=== PATIENT | male | born 1955 | race Caucasian/White ===

== ENCOUNTER 2022-08-07 14:23 | Inpatient (IN) | payer MEDICARE ==
[~2022-08-07] VITALS: Ht 172.7 cm; Wt 79.9 kg
[2022-08-07] VITALS (16 sets, daily range): BP systolic 76–110; BP diastolic 38–55
[2022-08-07] MEDS: VASOPRESSIN INJ 20 UNITS in NS 500 ML IV SCH ×2
[2022-08-07] MEDS ORDERED: cefTRIAXone SOD 2 GM in D5W MINI-BAG PLUS 50 ML IV ONE (14:40)
[2022-08-07] MEDS ORDERED: NS 2,100 ML in IV 1 EA IV ONE (14:40)
[2022-08-07] MEDS ORDERED: UNRESOLVED CLARIFICATION ENTRY XX STA (14:49)
[2022-08-07 15:32] LABS: BASO % 0.3 % (0.0-1.0); EOS % 0.1 % (0.0-3.0); HEMATOCRIT 42.5 % (42.0-52.0); HEMOGLOBIN 12.9 g/dl (13.5-17.5); LYMPH # 2.3 10^3/uL (1.5-5.0); LYMPH % 14.6 % (24.0-44.0); MEAN CORPUSCULAR HEMOGLOBIN 33.8 pg (27.0-33.0); MEAN CORPUSCULAR HGB CONC 30.4 g/dl (32.0-36.5); MEAN CORPUSCULAR VOLUME 111.3 fl (80.0-96.0); MONO # 0.7 10^3/uL (0.0-0.8); MONO % 4.5 % (2.0-8.0); NEUTROPHILS # 12.5 10^3/uL (1.5-8.5); NEUTROPHILS % 78.5 % (36.0-66.0); PLATELET COUNT, AUTOMATED 215 10^3/uL (150-450); RED BLOOD COUNT 3.82 10^6/uL (4.30-6.10); WHITE BLOOD COUNT 15.9 10^3/uL (4.0-10.0)
[2022-08-07 15:41] LABS: APPEARANCE, URINE CLEAR (CLEAR); BILIRUBIN, URINE AUTO NEGATIVE (NEGATIVE); BLOOD, URINE BLOOD 1+ (NEGATIVE); COLOR, URINE YELLOW (YELLOW); GLUCOSE, URINE (UA) AUTO NEGATIVE (NEGATIVE); KETONE, URINE AUTO TRACE mg/dL (NEGATIVE); LEUKOCYTE ESTERASE, URINE AUTO NEGATIVE (NEGATIVE); NITRITE, URINE AUTO NEGATIVE (NEGATIVE); PROTEIN, URINE AUTO NEGATIVE (NEGATIVE); SPECIFIC GRAVITY URINE AUTO 1.012 (1.002-1.035); UROBILINOGEN, URINE AUTO 0.2 mg/dL (0.0-2.0)
[2022-08-07 15:43] LABS: BACTERIA, URINE AUTO NEGATIVE (NEGATIVE); RBC, URINE AUTO 0 /HPF (0-3); SQUAMOUS EPITHELIAL CELL UR AU 0 /HPF (0-6); WBC, URINE AUTO 3 /HPF (0-3)
[2022-08-07 15:44] LABS: INR 1.85; PROTHROMBIN TIME 21.7 SECONDS (12.5-14.5)
[2022-08-07 15:45] LABS: PARTIAL THROMBOPLASTIN TIME 46.8 SECONDS (24.8-34.2)
[2022-08-07 15:51] LABS: C REACTIVE PROTEIN QUANTITATIV < 0.40 MG/DL (<1.0); ETHYL ALCOHOL (ETHANOL) 0.081 % (0.000-0.010)
[2022-08-07 15:52] LABS: ABG BASE EXCESS -33.9 (-2.0-2.0); ABG HCO3 3.9 MEQ/L (22.0-26.0); ABG O2 SATURATION 47.9 % (95.0-99.0); ABG PARTIAL PRESSURE CO2 39.5 mmHg (35.0-45.0); ABG STANDARD HCO3 2.2 MEQ/L (22.0-26.0); ABG TOTAL CO2 5.1 MEQ/L (23.0-31.0)
[2022-08-07 15:53] LABS: AMYLASE 229 U/L (30-118); SALICYLATE LEVEL < 3.0 MG/DL (<30)
[2022-08-07] MEDS ORDERED: DEXTROSE 50% 50ML SYRINGE IV STA (15:54)
[2022-08-07 15:56] LABS: ABG PARTIAL PRESSURE O2 35.8 mmHg (75.0-100.0); ABG pH (ARTERIAL) 6.607 UNITS (7.350-7.450)
[2022-08-07 15:57] LABS: RSV AMPLIFICATION NEGATIVE (NEGATIVE)
[2022-08-07 16:02] LABS: AMPHETAMINES LEVEL URINE NEGATIVE (NEGATIVE); BARBITURATES URINE NEGATIVE (NEGATIVE); BENZODIAZEPINES URINE NEGATIVE (NEGATIVE); COCAINE METABOLITE URINE NEGATIVE (NEGATIVE); METHADONE URINE NEGATIVE (NEGATIVE); OPIATES URINE NEGATIVE (NEGATIVE); PHENCYCLIDINE URINE NEGATIVE (NEGATIVE)
[2022-08-07 16:05] LABS: CANNABINOIDS URINE POSITIVE (NEGATIVE)
[2022-08-07 16:09] LABS: ACETAMINOPHEN LEVEL < 2.0 UG/ML (10.0-20.0); ALBUMIN 3.6 G/DL (3.2-5.2); ALKALINE PHOSPHATASE 156 U/L (46-116); ALT/SGPT 98 U/L (7.0-40); AST/SGOT 403 U/L (<34); BILIRUBIN,DIRECT 1.5 MG/DL (<0.4); BILIRUBIN,TOTAL 2.6 MG/DL (0.3-1.2); BLOOD UREA NITROGEN 23 MG/DL (9-23); CALCIUM LEVEL 9.6 MG/DL (8.3-10.6); CARBON DIOXIDE LEVEL < 10.0 MMOL/L (20-31); CHLORIDE LEVEL 91 MMOL/L (98-107); CK-MB VALUE MASS 140.3 NG/ML (<3.6); CPK CREATINE PHOSPHOKINASE 10363 U/L (46-171); GLOMERULAR FILTRATION RATE 21.5 (>49); GLUCOSE, FASTING 54 MG/DL (74-106); MB/CK RELATIVE INDEX 1.35 (< OR =4); POTASSIUM SERUM 5.7 MMOL/L (3.5-5.1); SODIUM LEVEL 140 MMOL/L (136-145); THYROID STIMULATING HORMONE 8.046 uIU/ML (0.55-4.78); TOTAL PROTEIN 7.1 G/DL (5.7-8.2)
[2022-08-07] MEDS ORDERED: D5W/0.9% SODIUM CHLORIDE 1,000 ML IV SCH (16:35)
[2022-08-07 17:14] LABS: OSMOLALITY SERUM 355 MOSM/KG (280-301)
[2022-08-07] MEDS ORDERED: SODIUM BICARBONATE 8.4% INJ 50ML SYRINGE As Ordered ONE (17:16)
[2022-08-07] MEDS ORDERED: MIDAZOLAM INJ 2MG/2ML VIAL As Ordered ONE (17:19)
[2022-08-07] MEDS ORDERED: fentaNYL 100 MCG/2 ML INJECTION IV PRN (17:20)
[2022-08-07] MEDS ORDERED: MIDAZOLAM 100MG/100ML-0.9%NACL 100 MG in IV 1 EA IV SCH (17:20)
[2022-08-07] MEDS ORDERED: CHARCOAL ACTIVATED LIQUID 25GM/120ML BTL NG ONE (17:25)
[2022-08-07] MEDS ORDERED: NOREPINEPHRINE 4MG IN D5 250ML 4 MG in IV 1 EA IV SCH ×2 (17:25)
[2022-08-07] MEDS ORDERED: SODIUM BICARBONATE 8.4% INJ 50ML SYRINGE IV STA (17:43)
[2022-08-07] MEDS ORDERED: MIDAZOLAM INJ 2MG/2ML VIAL IV ONE (18:00)
[2022-08-07] MEDS: PYRIDOXINE 50 MG TAB PO SCH (18:00)
[2022-08-07] MEDS ORDERED: MAG SULF 1GM/100ML (MAG RUN) 1 GM in IV 1 EA IV ONE ×2 (18:00→20:00)
[2022-08-07] MEDS: SODIUM BICARBONATE 150 MEQ in STERILE WATER LITER BAG 1,000 ML IV SCH ×2 (18:07→19:28)
[2022-08-07] MEDS: MIDAZOLAM 100MG/100ML-0.9%NACL 100 MG in IV 1 EA IV SCH ×2 (18:13→23:09)
[2022-08-07] MEDS: NOREPINEPHRINE 4MG IN D5 250ML 4 MG in IV 1 EA IV SCH ×4 (18:16→23:04)
[2022-08-07 18:30] LABS: ABG HCO3 3.3 MEQ/L (22.0-26.0); ABG O2 SATURATION 98.7 % (95.0-99.0); ABG PARTIAL PRESSURE CO2 23.9 mmHg (35.0-45.0); ABG PARTIAL PRESSURE O2 205.9 mmHg (75.0-100.0); ABG STANDARD HCO3 3.8 MEQ/L (22.0-26.0); ABG TOTAL CO2 4.1 MEQ/L (23.0-31.0)
[2022-08-07 18:31] LABS: ABG pH (ARTERIAL) 6.762 UNITS (7.350-7.450)
[2022-08-07] MEDS: SODIUM BICARBONATE 150 MEQ in D5W 1,000 ML IV SCH (19:00)
[2022-08-07] MEDS ORDERED: NS IV ONE (19:00)
[2022-08-07] MEDS ORDERED: FOMEPIZOLE IV ONE (19:00)
[2022-08-07] MEDS ORDERED: HEPARIN 1,000UNITS/ML 10ML VIAL (FOR RADIOLOGY & DIALYSIS ONLY) IV STA (19:13)
[2022-08-07] MEDS ORDERED: ROCURONIUM BROMIDE 50MG/5ML VIAL ONE (19:33)
[2022-08-07] MEDS ORDERED: ETOMIDATE INJ 20MG/10ML VIAL ONE (19:33)
[2022-08-07] MEDS ORDERED: COMBIVENT RESPIMAT 100-20MCG INHALER 4GM INH SCH (20:00)
[2022-08-07] MEDS ORDERED: ETOMIDATE INJ 20MG/10ML VIAL IV STA (20:02)
[2022-08-07] MEDS ORDERED: ROCURONIUM BROMIDE 50MG/5ML VIAL IV SCH (20:05)
[2022-08-07 20:08] LABS: OSMOLALITY SERUM 353 MOSM/KG (280-301)
[2022-08-07 20:12] LABS: ACETONE/KETONE > 4.50 MMOL/L (0.02-0.27); ALBUMIN 2.8 G/DL (3.2-5.2); BLOOD UREA NITROGEN 23 MG/DL (9-23); CALCIUM LEVEL 7.8 MG/DL (8.3-10.6); CARBON DIOXIDE LEVEL < 10.0 MMOL/L (20-31); CHLORIDE LEVEL 94 MMOL/L (98-107); CREATININE FOR GFR 2.89 MG/DL (0.70-1.30); GLOMERULAR FILTRATION RATE 23.3 (>49); GLUCOSE, FASTING 227 MG/DL (74-106); MAGNESIUM LEVEL 2.4 MG/DL (1.8-2.4); POTASSIUM SERUM 7.1 MMOL/L (3.5-5.1); SODIUM LEVEL 137 MMOL/L (136-145)
[2022-08-07] MEDS ORDERED: SODIUM CHLORIDE 0.9% INJ 10 ML SYR IV PRN (20:50)
[2022-08-07] MEDS ORDERED: HEPARIN 1,000UNITS/ML 10ML VIAL (FOR RADIOLOGY & DIALYSIS ONLY) IV PRN (20:50)
[2022-08-07] MEDS: PANTOPRAZOLE 40MG VIAL IV SCH (22:00)
[2022-08-07] MEDS: THIAMINE 200MG 2ML VIAL IV SCH (22:45)
[2022-08-07] MEDS: CHLORHEXIDINE GLUCONATE 0.12 % 15ML UDC (PERIDEX ORAL RINSE) MT SCH (22:45)
[2022-08-07] MEDS: FOLIC ACID 50 MG in NS 50 ML IV SCH (23:08)
[2022-08-08] VITALS (101 sets, daily range): BP systolic 67–163; BP diastolic 33–71
[2022-08-08] MEDS: IPRATROPIUM 0.5MG/ALBUTEROL 2.5MG INH SOL UD 3ML (DUONEB) NEB SCH ×5 (00:26→19:55)
[2022-08-08] MEDS: SODIUM BICARBONATE 150 MEQ in D5W 1,000 ML IV SCH ×2 (00:30→06:46)
[2022-08-08] MEDS: NOREPINEPHRINE 4MG IN D5 250ML 4 MG in IV 1 EA IV SCH ×16 (01:11→20:43)
[2022-08-08] MEDS: PYRIDOXINE 50 MG TAB PO SCH ×5 (01:26→23:41)
[2022-08-08] MEDS ORDERED: GLUCOSE 4GM CHEW TABLET PO PRN (02:25)
[2022-08-08] MEDS ORDERED: GLUCAGON INJ 1MG VIAL SC PRN (02:25)
[2022-08-08] MEDS: FOLIC ACID 50 MG in NS 50 ML IV SCH ×7 (03:05→20:41)
[2022-08-08] MEDS: THIAMINE 200MG 2ML VIAL IV SCH (03:05)
[2022-08-08] MEDS ORDERED: FOMEPIZOLE IV ONE (04:00)
[2022-08-08] MEDS ORDERED: NS IV ONE (04:00)
[2022-08-08 04:18] LABS: HEMATOCRIT 27.7 % (42.0-52.0); HEMOGLOBIN 9.6 g/dl (13.5-17.5); MEAN CORPUSCULAR HEMOGLOBIN 34.5 pg (27.0-33.0); MEAN CORPUSCULAR HGB CONC 34.7 g/dl (32.0-36.5); MEAN CORPUSCULAR VOLUME 99.6 fl (80.0-96.0); RED BLOOD COUNT 2.78 10^6/uL (4.30-6.10)
[2022-08-08 04:18] LABS: ABG BASE EXCESS -9.5 (-2.0-2.0); ABG HCO3 15.3 MEQ/L (22.0-26.0); ABG O2 SATURATION 94.6 % (95.0-99.0); ABG PARTIAL PRESSURE CO2 29.9 mmHg (35.0-45.0); ABG PARTIAL PRESSURE O2 72.4 mmHg (75.0-100.0); ABG STANDARD HCO3 16.8 MEQ/L (22.0-26.0); ABG TOTAL CO2 16.2 MEQ/L (23.0-31.0); ABG pH (ARTERIAL) 7.327 UNITS (7.350-7.450)
[2022-08-08 04:36] LABS: PLATELET COUNT, AUTOMATED 83 10^3/uL (150-450)
[2022-08-08 04:38] LABS: WHITE BLOOD COUNT 6.7 10^3/uL (4.0-10.0)
[2022-08-08 04:53] LABS: CALCIUM LEVEL 6.1 MG/DL (8.3-10.6); CREATININE FOR GFR 1.87 MG/DL (0.70-1.30); GLOMERULAR FILTRATION RATE 38.5 (>49); MAGNESIUM LEVEL 1.8 MG/DL (1.8-2.4); PHOSPHORUS LEVEL 4.3 MG/DL (2.4-5.1); POTASSIUM SERUM 5.1 MMOL/L (3.5-5.1)
[2022-08-08 05:08] LABS: ALBUMIN 2.4 G/DL (3.2-5.2); CALCIUM LEVEL 6.2 MG/DL (8.3-10.6); CREATININE FOR GFR 1.83 MG/DL (0.70-1.30); GLOMERULAR FILTRATION RATE 39.5 (>49); POTASSIUM SERUM 5.1 MMOL/L (3.5-5.1); TOTAL PROTEIN 4.6 G/DL (5.7-8.2)
[2022-08-08] MEDS: CALCIUM GLUCONATE 1,000 MG in NS 100 ML IV SCH ×3 (05:50→23:40)
[2022-08-08] MEDS: INSULIN LISPRO (NovoLOG) PER UNIT SC SCH ×3 (06:25→17:16)
[2022-08-08] MEDS: VASOPRESSIN INJ 20 UNITS in NS 500 ML IV SCH (06:57)
[2022-08-08] MEDS ORDERED: MAG SULF 1GM/100ML (MAG RUN) 1 GM in IV 1 EA IV ONE ×3 (07:00→19:00)
[2022-08-08] MEDS ORDERED: VASOPRESSIN INJ 20 UNITS in NS 499 ML IV SCH (07:12)
[2022-08-08] MEDS ORDERED: CALCIUM CHLORIDE 10% 1 GM/10 ML SYR IV STA (07:41)
[2022-08-08] MEDS ORDERED: VANCOMYCIN HCL 1,000 MG, VIAL MATE ADAPTER 1 EACH in NS 250 ML IV SCH (08:20)
[2022-08-08] MEDS ORDERED: ENOXAPARIN 40MG/0.4ML SYRINGE (J1650 PER 10MG) SC SCH (09:00)
[2022-08-08] MEDS ORDERED: THIAMINE 200MG 2ML VIAL IV SCH (09:00)
[2022-08-08] MEDS ORDERED: D5W IV ONE (09:00)
[2022-08-08] MEDS ORDERED: ACETYLCYSTEINE IV ONE (09:00)
[2022-08-08] MEDS: CHLORHEXIDINE GLUCONATE 0.12 % 15ML UDC (PERIDEX ORAL RINSE) MT SCH ×2 (09:07→20:41)
[2022-08-08] MEDS: SODIUM BICARBONATE 150 MEQ in STERILE WATER LITER BAG 1,000 ML IV SCH ×2 (09:08→17:29)
[2022-08-08] MEDS: cefTRIAXone SOD 2 GM in D5W MINI-BAG PLUS 50 ML IV SCH (09:18)
[2022-08-08] MEDS: THIAMINE INJection 500 MG in NS 100 ML IV SCH ×2 (09:19→15:55)
[2022-08-08] MEDS ORDERED: VANCOMYCIN HCL 750 MG, VIAL MATE ADAPTER 1 EACH in D5W 250 ML IV ONE (10:00)
[2022-08-08] MEDS ORDERED: EPINEPHrine INJ 1 MG/ML 1ML AMP As Ordered ONE (10:33)
[2022-08-08 10:37] LABS: HEMATOCRIT 25.1 % (42.0-52.0); HEMOGLOBIN 8.6 g/dl (13.5-17.5); MEAN CORPUSCULAR HEMOGLOBIN 34.3 pg (27.0-33.0); MEAN CORPUSCULAR HGB CONC 34.3 g/dl (32.0-36.5); RED BLOOD COUNT 2.51 10^6/uL (4.30-6.10); WHITE BLOOD COUNT 2.3 10^3/uL (4.0-10.0)
[2022-08-08 10:38] LABS: PLATELET COUNT, AUTOMATED 51 10^3/uL (150-450)
[2022-08-08] MEDS ORDERED: EPINEPHrine HCL INJ 1 MG in D5W 249 ML IV SCH (10:50)
[2022-08-08 10:59] LABS: CREATININE FOR GFR 1.33 MG/DL (0.70-1.30); GLOMERULAR FILTRATION RATE 57.1 (>49); MAGNESIUM LEVEL 1.8 MG/DL (1.8-2.4); PHOSPHORUS LEVEL 1.8 MG/DL (2.4-5.1); POTASSIUM SERUM 3.7 MMOL/L (3.5-5.1)
[2022-08-08] MEDS ORDERED: ACETYLCYSTEINE 3,400 MG in D5W 500 ML IV ONE (11:00)
[2022-08-08] MEDS ORDERED: EPINEPHrine HCL INJ 4 MG in D5W 996 ML IV SCH ×2 (11:00→13:00)
[2022-08-08] MEDS ORDERED: EPINEPHrine HCL INJ 1 MG in D5W 240 ML IV SCH (11:00)
[2022-08-08] MEDS ORDERED: VANCOMYCIN HCL 500 MG in D5W MINI-BAG PLUS 100 ML IV ONE (11:00)
[2022-08-08] MEDS: HYDROCORTISONE 100MG/2ML VIAL IV SCH ×3 (11:02→22:23)
[2022-08-08] MEDS ORDERED: KCL 20MEQ IN 100ML SWI (KRUN) 20 MEQ in IV 1 EA IV ONE ×2 (11:55)
[2022-08-08] MEDS: CALCIUM GLUCONATE 1,000 MG, VIAL MATE ADAPTER 1 EACH in NS 100 ML IV SCH ×2 (12:33→13:52)
[2022-08-08] MEDS ORDERED: SODIUM PHOSPHATE INJ 15 MMOL in D5W 250 ML IV ONE (15:00)
[2022-08-08] MEDS ORDERED: ACETYLCYSTEINE 6,800 MG in D5W 1,000 ML IV ONE (15:00)
[2022-08-08 16:02] LABS: HEMATOCRIT 27.5 % (42.0-52.0); HEMOGLOBIN 9.5 g/dl (13.5-17.5); MEAN CORPUSCULAR HEMOGLOBIN 34.3 pg (27.0-33.0); MEAN CORPUSCULAR HGB CONC 34.5 g/dl (32.0-36.5); MEAN CORPUSCULAR VOLUME 99.3 fl (80.0-96.0); RED BLOOD COUNT 2.77 10^6/uL (4.30-6.10); WHITE BLOOD COUNT 4.7 10^3/uL (4.0-10.0)
[2022-08-08 16:07] LABS: PLATELET COUNT, AUTOMATED 52 10^3/uL (150-450)
[2022-08-08 17:31] LABS: ALT/SGPT 88 U/L (7.0-40); AST/SGOT 280 U/L (<34); BLOOD UREA NITROGEN 10 MG/DL (9-23); CALCIUM LEVEL 6.8 MG/DL (8.3-10.6); CARBON DIOXIDE LEVEL 18 MMOL/L (20-31); CHLORIDE LEVEL 96 MMOL/L (98-107); CREATININE FOR GFR 1.09 MG/DL (0.70-1.30); GLOMERULAR FILTRATION RATE > 60.0 (>49); GLUCOSE, FASTING 297 MG/DL (74-106); MAGNESIUM LEVEL 1.9 MG/DL (1.8-2.4); PHOSPHORUS LEVEL 1.8 MG/DL (2.4-5.1); POTASSIUM SERUM 4.3 MMOL/L (3.5-5.1); SODIUM LEVEL 133 MMOL/L (136-145)
[2022-08-08] MEDS: PANTOPRAZOLE 40MG VIAL IV SCH (18:31)
[2022-08-08] MEDS: CALCIUM GLUCONATE 1,000 MG in D5W MINI-BAG PLUS 100 ML IV SCH ×2 (18:41→21:11)
[2022-08-08 19:01] LABS: CPK CREATINE PHOSPHOKINASE 6356 U/L (46-171)
[2022-08-08] MEDS ORDERED: INSULIN LISPRO (NovoLOG) PER UNIT SC SCH (21:00)
[2022-08-08] MEDS ORDERED: SODIUM PHOSPHATE INJ 30 MMOL in D5W 500 ML IV ONE (22:00)
[2022-08-08 22:21] LABS: HEMATOCRIT 29.1 % (42.0-52.0); HEMOGLOBIN 10.2 g/dl (13.5-17.5); MEAN CORPUSCULAR HGB CONC 35.1 g/dl (32.0-36.5); WHITE BLOOD COUNT 8.8 10^3/uL (4.0-10.0)
[2022-08-08 22:22] LABS: PLATELET COUNT, AUTOMATED 50 10^3/uL (150-450)
[2022-08-08] MEDS: VANCOMYCIN HCL 750 MG, VIAL MATE ADAPTER 1 EACH in D5W 250 ML IV SCH (22:23)
[2022-08-08 22:52] LABS: BLOOD UREA NITROGEN 8 MG/DL (9-23); CALCIUM LEVEL 6.7 MG/DL (8.3-10.6); CARBON DIOXIDE LEVEL 20 MMOL/L (20-31); CHLORIDE LEVEL 96 MMOL/L (98-107); CREATININE FOR GFR 0.97 MG/DL (0.70-1.30); GLOMERULAR FILTRATION RATE > 60.0 (>49); GLUCOSE, FASTING 251 MG/DL (74-106); PHOSPHORUS LEVEL 2.4 MG/DL (2.4-5.1); POTASSIUM SERUM 4.1 MMOL/L (3.5-5.1); SODIUM LEVEL 130 MMOL/L (136-145)
[2022-08-09] VITALS (103 sets, daily range): BP systolic 74–157; BP diastolic 44–96; O2SAT 97
[2022-08-09] MEDS: NOREPINEPHRINE 4MG IN D5 250ML 4 MG in IV 1 EA IV SCH ×10 (00:36→21:03)
[2022-08-09] MEDS: THIAMINE INJection 500 MG in NS 100 ML IV SCH ×2 (00:37→07:31)
[2022-08-09] MEDS: INSULIN LISPRO (NovoLOG) PER UNIT SC SCH ×3 (00:38→20:00)
[2022-08-09] MEDS: CALCIUM GLUCONATE 1,000 MG in NS 100 ML IV SCH ×5 (00:46→13:24)
[2022-08-09] MEDS: FOLIC ACID 50 MG in NS 50 ML IV SCH ×3 (01:03→07:42)
[2022-08-09] MEDS ORDERED: SODIUM PHOSPHATE INJ 15 MMOL in D5W 500 ML IV ONE (02:00)
[2022-08-09 04:28] LABS: HEMATOCRIT 29.2 % (42.0-52.0); HEMOGLOBIN 10.3 g/dl (13.5-17.5); MEAN CORPUSCULAR HEMOGLOBIN 34.2 pg (27.0-33.0); MEAN CORPUSCULAR HGB CONC 35.3 g/dl (32.0-36.5); PLATELET COUNT, AUTOMATED 44 10^3/uL (150-450); RED BLOOD COUNT 3.01 10^6/uL (4.30-6.10); WHITE BLOOD COUNT 11.9 10^3/uL (4.0-10.0)
[2022-08-09 05:01] LABS: BLOOD UREA NITROGEN 7 MG/DL (9-23); CALCIUM LEVEL 6.8 MG/DL (8.3-10.6); CARBON DIOXIDE LEVEL 21 MMOL/L (20-31); CHLORIDE LEVEL 97 MMOL/L (98-107); CREATININE FOR GFR 0.96 MG/DL (0.70-1.30); GLOMERULAR FILTRATION RATE > 60.0 (>49); GLUCOSE, FASTING 222 MG/DL (74-106); MAGNESIUM LEVEL 1.9 MG/DL (1.8-2.4); PHOSPHORUS LEVEL 3.2 MG/DL (2.4-5.1); POTASSIUM SERUM 4.1 MMOL/L (3.5-5.1); SODIUM LEVEL 131 MMOL/L (136-145)
[2022-08-09] MEDS: PYRIDOXINE 50 MG TAB PO SCH (05:08)
[2022-08-09] MEDS: HYDROCORTISONE 100MG/2ML VIAL IV SCH ×4 (05:08→22:13)
[2022-08-09 05:55] LABS: ABG BASE EXCESS -3.1 (-2.0-2.0); ABG HCO3 19.2 MEQ/L (22.0-26.0); ABG O2 SATURATION 96.2 % (95.0-99.0); ABG PARTIAL PRESSURE CO2 26.2 mmHg (35.0-45.0); ABG PARTIAL PRESSURE O2 76.8 mmHg (75.0-100.0); ABG STANDARD HCO3 21.9 MEQ/L (22.0-26.0); ABG pH (ARTERIAL) 7.483 UNITS (7.350-7.450)
[2022-08-09] MEDS ORDERED: MAG SULF 1GM/100ML (MAG RUN) 1 GM in IV 1 EA IV ONE (07:00)
[2022-08-09] MEDS: IPRATROPIUM 0.5MG/ALBUTEROL 2.5MG INH SOL UD 3ML (DUONEB) NEB SCH ×4 (07:23→20:02)
[2022-08-09] MEDS: MIDAZOLAM 100MG/100ML-0.9%NACL 100 MG in IV 1 EA IV SCH (08:22)
[2022-08-09] MEDS: cefTRIAXone SOD 2 GM in D5W MINI-BAG PLUS 50 ML IV SCH (09:04)
[2022-08-09] MEDS ORDERED: INSULIN REGULAR IN 0.9 % NACL 100 UNIT in IV 1 EA IV SCH ×2 (09:35)
[2022-08-09] MEDS: VANCOMYCIN HCL 750 MG, VIAL MATE ADAPTER 1 EACH in D5W 250 ML IV SCH ×2 (10:11→22:13)
[2022-08-09] MEDS: CHLORHEXIDINE GLUCONATE 0.12 % 15ML UDC (PERIDEX ORAL RINSE) MT SCH ×2 (10:12→21:04)
[2022-08-09 10:51] LABS: HEMATOCRIT 30.4 % (42.0-52.0); HEMOGLOBIN 10.4 g/dl (13.5-17.5); MEAN CORPUSCULAR HGB CONC 34.2 g/dl (32.0-36.5); MEAN CORPUSCULAR VOLUME 99.3 fl (80.0-96.0); RED BLOOD COUNT 3.06 10^6/uL (4.30-6.10); WHITE BLOOD COUNT 13.9 10^3/uL (4.0-10.0)
[2022-08-09 10:59] LABS: ALBUMIN 1.9 G/DL (3.2-5.2); ALKALINE PHOSPHATASE 116 U/L (46-116); ALT/SGPT 114 U/L (7.0-40); AST/SGOT 505 U/L (<34); BILIRUBIN,DIRECT 2.3 MG/DL (<0.4); BILIRUBIN,TOTAL 3.5 MG/DL (0.3-1.2); TOTAL PROTEIN 4.2 G/DL (5.7-8.2)
[2022-08-09 11:04] LABS: PLATELET COUNT, AUTOMATED 39 10^3/uL (150-450)
[2022-08-09 11:12] LABS: BLOOD UREA NITROGEN 7 MG/DL (9-23); CARBON DIOXIDE LEVEL 22 MMOL/L (20-31); CHLORIDE LEVEL 99 MMOL/L (98-107); CREATININE FOR GFR 0.95 MG/DL (0.70-1.30); GLOMERULAR FILTRATION RATE > 60.0 (>49); GLUCOSE, FASTING 165 MG/DL (74-106); MAGNESIUM LEVEL 2.1 MG/DL (1.8-2.4); PHOSPHORUS LEVEL 2.7 MG/DL (2.4-5.1); POTASSIUM SERUM 4.4 MMOL/L (3.5-5.1); SODIUM LEVEL 134 MMOL/L (136-145)
[2022-08-09] MEDS: INSULIN IV RATE CHANGE DOCUMENTATION ML/HR XX SCH ×2 (11:31→13:30)
[2022-08-09] MEDS: VASOPRESSIN INJ 20 UNITS in NS 499 ML IV SCH ×2 (12:58→20:50)
[2022-08-09 16:06] LABS: HEMOGLOBIN 10.7 g/dl (13.5-17.5); MEAN CORPUSCULAR HEMOGLOBIN 33.9 pg (27.0-33.0); MEAN CORPUSCULAR HGB CONC 34.5 g/dl (32.0-36.5); MEAN CORPUSCULAR VOLUME 98.1 fl (80.0-96.0); RED BLOOD COUNT 3.16 10^6/uL (4.30-6.10); WHITE BLOOD COUNT 15.4 10^3/uL (4.0-10.0)
[2022-08-09 16:08] LABS: PLATELET COUNT, AUTOMATED 34 10^3/uL (150-450)
[2022-08-09 16:32] LABS: BLOOD UREA NITROGEN < 5 MG/DL (9-23); CALCIUM LEVEL 7.2 MG/DL (8.3-10.6); CARBON DIOXIDE LEVEL 24 MMOL/L (20-31); CHLORIDE LEVEL 100 MMOL/L (98-107); CREATININE FOR GFR 0.84 MG/DL (0.70-1.30); GLOMERULAR FILTRATION RATE > 60.0 (>49); GLUCOSE, FASTING 92 MG/DL (74-106); PHOSPHORUS LEVEL 2.3 MG/DL (2.4-5.1); POTASSIUM SERUM 4.3 MMOL/L (3.5-5.1); SODIUM LEVEL 135 MMOL/L (136-145)
[2022-08-09] MEDS ORDERED: INSULIN LISPRO (NovoLOG) PER UNIT SC SCH (17:45)
[2022-08-09] MEDS: CALCIUM GLUCONATE 1,000 MG, VIAL MATE ADAPTER 1 EACH in NS 100 ML IV SCH ×2 (18:21→19:46)
[2022-08-09] MEDS: PANTOPRAZOLE 40MG VIAL IV SCH (18:21)
[2022-08-09] MEDS: DEXTROSE 50% 50ML SYRINGE IV PRN (18:23)
[2022-08-09] MEDS ORDERED: SODIUM PHOSPHATE INJ 15 MMOL in D5W 250 ML IV ONE (20:00)
[2022-08-09 22:19] LABS: HEMATOCRIT 30.1 % (42.0-52.0); HEMOGLOBIN 10.3 g/dl (13.5-17.5); MEAN CORPUSCULAR HEMOGLOBIN 33.4 pg (27.0-33.0); MEAN CORPUSCULAR HGB CONC 34.2 g/dl (32.0-36.5); MEAN CORPUSCULAR VOLUME 97.7 fl (80.0-96.0); RED BLOOD COUNT 3.08 10^6/uL (4.30-6.10); WHITE BLOOD COUNT 16.2 10^3/uL (4.0-10.0)
[2022-08-09 22:21] LABS: PLATELET COUNT, AUTOMATED 27 10^3/uL (150-450)
[2022-08-09 22:43] LABS: BLOOD UREA NITROGEN 6 MG/DL (9-23); CALCIUM LEVEL 7.2 MG/DL (8.3-10.6); CARBON DIOXIDE LEVEL 25 MMOL/L (20-31); CHLORIDE LEVEL 101 MMOL/L (98-107); CREATININE FOR GFR 0.69 MG/DL (0.70-1.30); GLOMERULAR FILTRATION RATE > 60.0 (>49); GLUCOSE, FASTING 129 MG/DL (74-106); PHOSPHORUS LEVEL 2.5 MG/DL (2.4-5.1); POTASSIUM SERUM 4.4 MMOL/L (3.5-5.1); SODIUM LEVEL 136 MMOL/L (136-145)
[2022-08-10] VITALS (92 sets, daily range): BP systolic 89–162; BP diastolic 50–77
[2022-08-10] MEDS: INSULIN LISPRO (NovoLOG) PER UNIT SC SCH ×6 (00:20→20:23)
[2022-08-10] MEDS: CALCIUM GLUCONATE 1,000 MG in NS 100 ML IV SCH ×2 (01:50→03:06)
[2022-08-10] MEDS: NOREPINEPHRINE 4MG IN D5 250ML 4 MG in IV 1 EA IV SCH ×8 (02:54→23:18)
[2022-08-10] MEDS: HYDROCORTISONE 100MG/2ML VIAL IV SCH ×4 (04:22→22:03)
[2022-08-10 04:23] LABS: HEMATOCRIT 30.3 % (42.0-52.0); HEMOGLOBIN 10.4 g/dl (13.5-17.5); MEAN CORPUSCULAR HEMOGLOBIN 33.7 pg (27.0-33.0); MEAN CORPUSCULAR HGB CONC 34.3 g/dl (32.0-36.5); MEAN CORPUSCULAR VOLUME 98.1 fl (80.0-96.0); RED BLOOD COUNT 3.09 10^6/uL (4.30-6.10); WHITE BLOOD COUNT 13.9 10^3/uL (4.0-10.0)
[2022-08-10 04:24] LABS: PLATELET COUNT, AUTOMATED 22 10^3/uL (150-450)
[2022-08-10 04:50] LABS: VANCOMYCIN RANDOM 14.2 UG/ML
[2022-08-10 04:51] LABS: ALKALINE PHOSPHATASE 112 U/L (46-116); ALT/SGPT 118 U/L (7.0-40); AST/SGOT 387 U/L (<34); BILIRUBIN,DIRECT 2.6 MG/DL (<0.4); BILIRUBIN,TOTAL 3.1 MG/DL (0.3-1.2); BLOOD UREA NITROGEN 6 MG/DL (9-23); BLOOD UREA NITROGEN 7 MG/DL (9-23); CALCIUM LEVEL 7.3 MG/DL (8.3-10.6); CALCIUM LEVEL 7.4 MG/DL (8.3-10.6); CARBON DIOXIDE LEVEL 26 MMOL/L (20-31); CHLORIDE LEVEL 102 MMOL/L (98-107); CREATININE FOR GFR 0.63 MG/DL (0.70-1.30); CREATININE FOR GFR 0.65 MG/DL (0.70-1.30); GLOMERULAR FILTRATION RATE > 60.0 (>49); GLUCOSE, FASTING 179 MG/DL (74-106); GLUCOSE, FASTING 180 MG/DL (74-106); PHOSPHORUS LEVEL 2.2 MG/DL (2.4-5.1); POTASSIUM SERUM 4.2 MMOL/L (3.5-5.1); POTASSIUM SERUM 4.3 MMOL/L (3.5-5.1); SODIUM LEVEL 135 MMOL/L (136-145); SODIUM LEVEL 136 MMOL/L (136-145); TOTAL PROTEIN 4.2 G/DL (5.7-8.2)
[2022-08-10] MEDS: VASOPRESSIN INJ 20 UNITS in NS 499 ML IV SCH ×2 (05:10→13:30)
[2022-08-10] MEDS: CALCIUM GLUCONATE 1,000 MG, VIAL MATE ADAPTER 1 EACH in NS 100 ML IV SCH ×4 (05:17→19:41)
[2022-08-10 06:26] LABS: ABG BASE EXCESS 1.2 (-2.0-2.0); ABG O2 SATURATION 97.4 % (95.0-99.0); ABG PARTIAL PRESSURE CO2 31.7 mmHg (35.0-45.0); ABG PARTIAL PRESSURE O2 91.2 mmHg (75.0-100.0); ABG STANDARD HCO3 25.6 MEQ/L (22.0-26.0); ABG pH (ARTERIAL) 7.497 UNITS (7.350-7.450)
[2022-08-10] MEDS ORDERED: SODIUM PHOSPHATE INJ 30 MMOL in D5W 250 ML IV ONE (07:00)
[2022-08-10] MEDS: IPRATROPIUM 0.5MG/ALBUTEROL 2.5MG INH SOL UD 3ML (DUONEB) NEB SCH ×4 (07:20→19:08)
[2022-08-10] MEDS: PYRIDOXINE 50 MG TAB PO SCH (08:22)
[2022-08-10] MEDS: FOLIC ACID 1MG TAB PO SCH (08:22)
[2022-08-10] MEDS: CHLORHEXIDINE GLUCONATE 0.12 % 15ML UDC (PERIDEX ORAL RINSE) MT SCH ×2 (08:22→22:03)
[2022-08-10] MEDS: THIAMINE 200MG 2ML VIAL IV SCH (08:22)
[2022-08-10] MEDS: VANCOMYCIN HCL 750 MG, VIAL MATE ADAPTER 1 EACH in D5W 250 ML IV SCH ×2 (08:25→20:23)
[2022-08-10] MEDS ORDERED: LOSA50TA28 PO (09:22)
[2022-08-10] MEDS ORDERED: VENL37.598 PO (09:22)
[2022-08-10] MEDS ORDERED: ALPR0.25 PO (09:22)
[2022-08-10] MEDS ORDERED: HOME MED LIST COMPLETE! XX SCH (09:25)
[2022-08-10] MEDS: cefTRIAXone SOD 2 GM in D5W MINI-BAG PLUS 50 ML IV SCH (09:59)
[2022-08-10 10:58] LABS: BLOOD UREA NITROGEN 7 MG/DL (9-23); CALCIUM LEVEL 7.8 MG/DL (8.3-10.6); CARBON DIOXIDE LEVEL 26 MMOL/L (20-31); CHLORIDE LEVEL 103 MMOL/L (98-107); CREATININE FOR GFR 0.62 MG/DL (0.70-1.30); GLOMERULAR FILTRATION RATE > 60.0 (>49); GLUCOSE, FASTING 178 MG/DL (74-106); PHOSPHORUS LEVEL 2.4 MG/DL (2.4-5.1); POTASSIUM SERUM 3.7 MMOL/L (3.5-5.1); SODIUM LEVEL 136 MMOL/L (136-145)
[2022-08-10 11:03] LABS: HEMATOCRIT 30.3 % (42.0-52.0); HEMOGLOBIN 10.6 g/dl (13.5-17.5); MEAN CORPUSCULAR HEMOGLOBIN 34.6 pg (27.0-33.0); RED BLOOD COUNT 3.06 10^6/uL (4.30-6.10); WHITE BLOOD COUNT 14.2 10^3/uL (4.0-10.0)
[2022-08-10 11:09] LABS: PLATELET COUNT, AUTOMATED 18 10^3/uL (150-450)
[2022-08-10] MEDS: MIDAZOLAM 100MG/100ML-0.9%NACL 100 MG in IV 1 EA IV SCH (12:20)
[2022-08-10 17:00] LABS: HEMATOCRIT 29.3 % (42.0-52.0); MEAN CORPUSCULAR HEMOGLOBIN 33.7 pg (27.0-33.0); MEAN CORPUSCULAR HGB CONC 34.1 g/dl (32.0-36.5); MEAN CORPUSCULAR VOLUME 98.7 fl (80.0-96.0); RED BLOOD COUNT 2.97 10^6/uL (4.30-6.10); WHITE BLOOD COUNT 12.3 10^3/uL (4.0-10.0)
[2022-08-10 17:01] LABS: PLATELET COUNT, AUTOMATED 21 10^3/uL (150-450)
[2022-08-10 17:16] LABS: BLOOD UREA NITROGEN 8 MG/DL (9-23); CALCIUM LEVEL 7.4 MG/DL (8.3-10.6); CARBON DIOXIDE LEVEL 27 MMOL/L (20-31); CHLORIDE LEVEL 103 MMOL/L (98-107); GLOMERULAR FILTRATION RATE > 60.0 (>49); GLUCOSE, FASTING 194 MG/DL (74-106); MAGNESIUM LEVEL 2.1 MG/DL (1.8-2.4); PHOSPHORUS LEVEL 2.3 MG/DL (2.4-5.1); POTASSIUM SERUM 3.4 MMOL/L (3.5-5.1); SODIUM LEVEL 139 MMOL/L (136-145)
[2022-08-10] MEDS ORDERED: NS 1,000 ML IV SCH (18:00)
[2022-08-10] MEDS: PANTOPRAZOLE 40MG VIAL IV SCH (18:17)
[2022-08-10] MEDS: KCL 20MEQ IN 100ML SWI (KRUN) 20 MEQ in IV 1 EA IV SCH ×4 (18:23→19:41)
[2022-08-10] MEDS ORDERED: MIDAZOLAM INJ 2MG/2ML VIAL IV PRN (18:25)
[2022-08-10] MEDS ORDERED: SODIUM PHOSPHATE INJ 15 MMOL in D5W 250 ML IV ONE (20:00)
[2022-08-10 22:57] LABS: HEMATOCRIT 27.4 % (42.0-52.0); HEMOGLOBIN 9.5 g/dl (13.5-17.5); MEAN CORPUSCULAR HEMOGLOBIN 34.3 pg (27.0-33.0); MEAN CORPUSCULAR HGB CONC 34.7 g/dl (32.0-36.5); MEAN CORPUSCULAR VOLUME 98.9 fl (80.0-96.0); RED BLOOD COUNT 2.77 10^6/uL (4.30-6.10); WHITE BLOOD COUNT 10.7 10^3/uL (4.0-10.0)
[2022-08-10 22:58] LABS: PLATELET COUNT, AUTOMATED 14 10^3/uL (150-450)
[2022-08-10 23:33] LABS: BLOOD UREA NITROGEN 9 MG/DL (9-23); CALCIUM LEVEL 7.2 MG/DL (8.3-10.6); CARBON DIOXIDE LEVEL 26 MMOL/L (20-31); CHLORIDE LEVEL 106 MMOL/L (98-107); CREATININE FOR GFR 0.59 MG/DL (0.70-1.30); GLOMERULAR FILTRATION RATE > 60.0 (>49); GLUCOSE, FASTING 197 MG/DL (74-106); MAGNESIUM LEVEL 1.9 MG/DL (1.8-2.4); PHOSPHORUS LEVEL 1.7 MG/DL (2.4-5.1); POTASSIUM SERUM 3.9 MMOL/L (3.5-5.1); SODIUM LEVEL 137 MMOL/L (136-145)
[2022-08-11] VITALS (71 sets, daily range): BP systolic 94–170; BP diastolic 53–82
[2022-08-11] MEDS ORDERED: MAG SULF 1GM/100ML (MAG RUN) 1 GM in IV 1 EA IV ONE ×2
[2022-08-11] MEDS: INSULIN LISPRO (NovoLOG) PER UNIT SC SCH ×5 (00:28→15:59)
[2022-08-11] MEDS ORDERED: KCL 20MEQ IN 100ML SWI (KRUN) 20 MEQ in IV 1 EA IV ONE ×4 (00:30→06:30)
[2022-08-11] MEDS ORDERED: MIDAZOLAM INJ 2MG/2ML VIAL IV ONE (01:35)
[2022-08-11] MEDS ORDERED: FENTANYL DRIP LOCK BOX KEY 1 EACH XX PRN (01:35)
[2022-08-11] MEDS ORDERED: fentaNYL CITRATE/NaCl 1,000 MCG in IV 1 EA IV SCH (01:35)
[2022-08-11] MEDS ORDERED: MIDAZOLAM 100MG/100ML-0.9%NACL 100 MG in IV 1 EA IV SCH (01:35)
[2022-08-11] MEDS: CALCIUM GLUCONATE 1,000 MG, VIAL MATE ADAPTER 1 EACH in NS 100 ML IV SCH ×2 (02:07→03:55)
[2022-08-11] MEDS ORDERED: SODIUM PHOSPHATE INJ 30 MMOL in D5W 250 ML IV ONE ×2 (04:30→12:00)
[2022-08-11] MEDS: HYDROCORTISONE 100MG/2ML VIAL IV SCH ×3 (04:47→16:00)
[2022-08-11 05:41] LABS: ABG BASE EXCESS 1.3 (-2.0-2.0); ABG O2 SATURATION 96.4 % (95.0-99.0); ABG PARTIAL PRESSURE CO2 31.4 mmHg (35.0-45.0); ABG PARTIAL PRESSURE O2 85.1 mmHg (75.0-100.0); ABG STANDARD HCO3 25.6 MEQ/L (22.0-26.0); ABG pH (ARTERIAL) 7.502 UNITS (7.350-7.450)
[2022-08-11 05:49] LABS: HEMATOCRIT 28.2 % (42.0-52.0); HEMOGLOBIN 9.7 g/dl (13.5-17.5); MEAN CORPUSCULAR HEMOGLOBIN 34.2 pg (27.0-33.0); MEAN CORPUSCULAR HGB CONC 34.4 g/dl (32.0-36.5); MEAN CORPUSCULAR VOLUME 99.3 fl (80.0-96.0); RED BLOOD COUNT 2.84 10^6/uL (4.30-6.10)
[2022-08-11 05:51] LABS: PLATELET COUNT, AUTOMATED 9 10^3/uL (150-450)
[2022-08-11 06:03] LABS: VANCOMYCIN RANDOM 9.5 UG/ML
[2022-08-11 06:06] LABS: BLOOD UREA NITROGEN 10 MG/DL (9-23); CALCIUM LEVEL 7.8 MG/DL (8.3-10.6); CARBON DIOXIDE LEVEL 26 MMOL/L (20-31); CHLORIDE LEVEL 105 MMOL/L (98-107); CREATININE FOR GFR 0.56 MG/DL (0.70-1.30); GLOMERULAR FILTRATION RATE > 60.0 (>49); GLUCOSE, FASTING 132 MG/DL (74-106); PHOSPHORUS LEVEL 1.1 MG/DL (2.4-5.1); POTASSIUM SERUM 3.9 MMOL/L (3.5-5.1); SODIUM LEVEL 138 MMOL/L (136-145)
[2022-08-11 06:07] LABS: BLOOD UREA NITROGEN 10 MG/DL (9-23); CALCIUM LEVEL 7.7 MG/DL (8.3-10.6); CARBON DIOXIDE LEVEL 26 MMOL/L (20-31); CHLORIDE LEVEL 106 MMOL/L (98-107); CREATININE FOR GFR 0.58 MG/DL (0.70-1.30); GLOMERULAR FILTRATION RATE > 60.0 (>49); GLUCOSE, FASTING 132 MG/DL (74-106); MAGNESIUM LEVEL 2.2 MG/DL (1.8-2.4); PHOSPHORUS LEVEL 1.1 MG/DL (2.4-5.1); POTASSIUM SERUM 3.9 MMOL/L (3.5-5.1); SODIUM LEVEL 139 MMOL/L (136-145)
[2022-08-11] MEDS ORDERED: CALCIUM GLUCONATE 1,000 MG, VIAL MATE ADAPTER 1 EACH in NS 100 ML IV ONE (07:00)
[2022-08-11] MEDS: IPRATROPIUM 0.5MG/ALBUTEROL 2.5MG INH SOL UD 3ML (DUONEB) NEB SCH ×4 (07:56→19:19)
[2022-08-11] MEDS: CHLORHEXIDINE GLUCONATE 0.12 % 15ML UDC (PERIDEX ORAL RINSE) MT SCH (08:40)
[2022-08-11] MEDS: FOLIC ACID 1MG TAB PO SCH (08:42)
[2022-08-11] MEDS: THIAMINE 200MG 2ML VIAL IV SCH (08:42)
[2022-08-11] MEDS: cefTRIAXone SOD 2 GM in D5W MINI-BAG PLUS 50 ML IV SCH (08:42)
[2022-08-11] MEDS: VANCOMYCIN HCL 750 MG, VIAL MATE ADAPTER 1 EACH in D5W 250 ML IV SCH (08:43)
[2022-08-11] MEDS: PYRIDOXINE 50 MG TAB PO SCH (08:44)
[2022-08-11] MEDS: NOREPINEPHRINE 4MG IN D5 250ML 4 MG in IV 1 EA IV SCH ×2 (09:17)
[2022-08-11] MEDS: METOCLOPRAMIDE INJ 10MG/2ML VIAL IV SCH ×3 (11:42→20:56)
[2022-08-11 17:04] LABS: MEAN CORPUSCULAR HEMOGLOBIN 34.1 pg (27.0-33.0); MEAN CORPUSCULAR HGB CONC 34.6 g/dl (32.0-36.5); MEAN CORPUSCULAR VOLUME 98.5 fl (80.0-96.0); RED BLOOD COUNT 2.64 10^6/uL (4.30-6.10); WHITE BLOOD COUNT 4.3 10^3/uL (4.0-10.0)
[2022-08-11 17:05] LABS: PLATELET COUNT, AUTOMATED 17 10^3/uL (150-450)
[2022-08-11 17:32] LABS: BLOOD UREA NITROGEN 18 MG/DL (9-23); CALCIUM LEVEL 7.3 MG/DL (8.3-10.6); CARBON DIOXIDE LEVEL 26 MMOL/L (20-31); CHLORIDE LEVEL 106 MMOL/L (98-107); CREATININE FOR GFR 0.85 MG/DL (0.70-1.30); GLOMERULAR FILTRATION RATE > 60.0 (>49); GLUCOSE, FASTING 171 MG/DL (74-106); POTASSIUM SERUM 3.4 MMOL/L (3.5-5.1); SODIUM LEVEL 138 MMOL/L (136-145)
[2022-08-11] MEDS: PANTOPRAZOLE 40MG VIAL IV SCH (18:49)
[2022-08-11] MEDS ORDERED: VANCOMYCIN HCL 750 MG, VIAL MATE ADAPTER 1 EACH in D5W 250 ML IV ONE (21:00)
[2022-08-12] VITALS (13 sets, daily range): BP systolic 109–164; BP diastolic 55–96
[2022-08-12] MEDS: INSULIN LISPRO (NovoLOG) PER UNIT SC SCH ×5 (00:27→23:10)
[2022-08-12 05:57] LABS: ABG BASE EXCESS 3.2 (-2.0-2.0); ABG HCO3 25.7 MEQ/L (22.0-26.0); ABG O2 SATURATION 93.9 % (95.0-99.0); ABG PARTIAL PRESSURE CO2 31.6 mmHg (35.0-45.0); ABG PARTIAL PRESSURE O2 68.8 mmHg (75.0-100.0); ABG STANDARD HCO3 27.3 MEQ/L (22.0-26.0); ABG TOTAL CO2 26.7 MEQ/L (23.0-31.0); ABG pH (ARTERIAL) 7.528 UNITS (7.350-7.450)
[2022-08-12 06:34] LABS: HEMATOCRIT 27.1 % (42.0-52.0); HEMOGLOBIN 9.3 g/dl (13.5-17.5); MEAN CORPUSCULAR HEMOGLOBIN 33.7 pg (27.0-33.0); MEAN CORPUSCULAR HGB CONC 34.3 g/dl (32.0-36.5); MEAN CORPUSCULAR VOLUME 98.2 fl (80.0-96.0); RED BLOOD COUNT 2.76 10^6/uL (4.30-6.10); WHITE BLOOD COUNT 4.3 10^3/uL (4.0-10.0)
[2022-08-12 07:02] LABS: VANCOMYCIN RANDOM 17.8 UG/ML
[2022-08-12 07:03] LABS: ALBUMIN 2.1 G/DL (3.2-5.2); BLOOD UREA NITROGEN 26 MG/DL (9-23); CALCIUM LEVEL 7.2 MG/DL (8.3-10.6); CARBON DIOXIDE LEVEL 27 MMOL/L (20-31); CHLORIDE LEVEL 105 MMOL/L (98-107); CREATININE FOR GFR 1.15 MG/DL (0.70-1.30); GLOMERULAR FILTRATION RATE > 60.0 (>49); GLUCOSE, FASTING 125 MG/DL (74-106); PHOSPHORUS LEVEL 3.7 MG/DL (2.4-5.1); POTASSIUM SERUM 3.8 MMOL/L (3.5-5.1); SODIUM LEVEL 139 MMOL/L (136-145)
[2022-08-12 07:21] LABS: PLATELET COUNT, AUTOMATED 11 10^3/uL (150-450)
[2022-08-12] MEDS: IPRATROPIUM 0.5MG/ALBUTEROL 2.5MG INH SOL UD 3ML (DUONEB) NEB SCH ×4 (07:29→19:21)
[2022-08-12 08:57] LABS: ALKALINE PHOSPHATASE 308 U/L (46-116); ALT/SGPT 251 U/L (7.0-40); AST/SGOT 786 U/L (<34); BILIRUBIN,DIRECT 4.5 MG/DL (<0.4); BILIRUBIN,TOTAL 5.5 MG/DL (0.3-1.2); TOTAL PROTEIN 5.3 G/DL (5.7-8.2)
[2022-08-12] MEDS: METOCLOPRAMIDE INJ 10MG/2ML VIAL IV SCH ×3 (09:00→20:19)
[2022-08-12] MEDS: FOLIC ACID 1MG TAB PO SCH (09:04)
[2022-08-12] MEDS: PYRIDOXINE 50 MG TAB PO SCH (09:04)
[2022-08-12] MEDS: THIAMINE 200MG 2ML VIAL IV SCH (09:06)
[2022-08-12] MEDS: cefTRIAXone SOD 2 GM in D5W MINI-BAG PLUS 50 ML IV SCH (09:07)
[2022-08-12 12:29] LABS: CLOSTRIDIUM DIFFICILE PCR NEGATIVE (NEGATIVE)
[2022-08-12] MEDS: LOPERAMIDE 2 MG CAPLET PO PRN ×3 (14:17→23:11)
[2022-08-12] MEDS ORDERED: D5W IV ONE ×3 (16:00→21:00)
[2022-08-12] MEDS ORDERED: ACETYLCYSTEINE IV ONE ×3 (16:00→21:00)
[2022-08-12 17:01] LABS: INR 1.79; PROTHROMBIN TIME 21.1 SECONDS (12.5-14.5)
[2022-08-12 17:02] LABS: PARTIAL THROMBOPLASTIN TIME 21.3 SECONDS (24.8-34.2)
[2022-08-12 17:10] LABS: ALBUMIN 2.5 G/DL (3.2-5.2); ALKALINE PHOSPHATASE 382 U/L (46-116); ALT/SGPT 297 U/L (7.0-40); AST/SGOT 828 U/L (<34); BILIRUBIN,DIRECT 5.3 MG/DL (<0.4); BILIRUBIN,TOTAL 6.7 MG/DL (0.3-1.2)
[2022-08-12 17:46] LABS: HEMATOCRIT 28.4 % (42.0-52.0); HEMOGLOBIN 9.8 g/dl (13.5-17.5); MEAN CORPUSCULAR HEMOGLOBIN 34.1 pg (27.0-33.0); MEAN CORPUSCULAR HGB CONC 34.5 g/dl (32.0-36.5); RED BLOOD COUNT 2.87 10^6/uL (4.30-6.10)
[2022-08-12] MEDS: PANTOPRAZOLE 40MG VIAL IV SCH (18:08)
[2022-08-12 18:13] LABS: PLATELET COUNT, AUTOMATED 16 10^3/uL (150-450)
[2022-08-12 18:16] LABS: EOSINOPHILS 6 % (0-3); LYMPHOCYTES 40 % (16-44); METAMYELOCYTES 1 % (0-0); MONOCYTES 4 % (0-5); NEUTROPHILS 47 % (28-66); PLATELET ESTIMATE MARKED DECREASE (NORMAL)
[2022-08-12 19:32] LABS: HEPATITIS B SURFACE ANTIGEN NEGATIVE (NEGATIVE)
[2022-08-12 19:53] LABS: HEPATITIS B CORE ANTIBODY IGM NEGATIVE (NEGATIVE)
[2022-08-13] VITALS (12 sets, daily range): BP systolic 98–168; BP diastolic 53–84
[2022-08-13] MEDS: LOPERAMIDE 2 MG CAPLET PO PRN (04:32)
[2022-08-13 04:51] LABS: HEMATOCRIT 26.4 % (42.0-52.0); HEMOGLOBIN 9.2 g/dl (13.5-17.5); MEAN CORPUSCULAR HEMOGLOBIN 33.7 pg (27.0-33.0); MEAN CORPUSCULAR HGB CONC 34.8 g/dl (32.0-36.5); MEAN CORPUSCULAR VOLUME 96.7 fl (80.0-96.0); RED BLOOD COUNT 2.73 10^6/uL (4.30-6.10); WHITE BLOOD COUNT 4.1 10^3/uL (4.0-10.0)
[2022-08-13 04:58] LABS: PLATELET COUNT, AUTOMATED 7 10^3/uL (150-450)
[2022-08-13 05:06] LABS: INR 2.23; PROTHROMBIN TIME 25.1 SECONDS (12.5-14.5)
[2022-08-13 05:22] LABS: ALBUMIN 1.8 G/DL (3.2-5.2); ALKALINE PHOSPHATASE 289 U/L (46-116); ALT/SGPT 224 U/L (7.0-40); AST/SGOT 455 U/L (<34); BILIRUBIN,DIRECT 4.7 MG/DL (<0.4); BILIRUBIN,TOTAL 5.8 MG/DL (0.3-1.2); BLOOD UREA NITROGEN 30 MG/DL (9-23); CALCIUM LEVEL 7.3 MG/DL (8.3-10.6); CARBON DIOXIDE LEVEL 27 MMOL/L (20-31); CHLORIDE LEVEL 105 MMOL/L (98-107); CREATININE FOR GFR 1.06 MG/DL (0.70-1.30); GLOMERULAR FILTRATION RATE > 60.0 (>49); GLUCOSE, FASTING 173 MG/DL (74-106); PHOSPHORUS LEVEL 2.4 MG/DL (2.4-5.1); POTASSIUM SERUM 2.5 MMOL/L (3.5-5.1); SODIUM LEVEL 141 MMOL/L (136-145); TOTAL PROTEIN 4.1 G/DL (5.7-8.2)
[2022-08-13] MEDS: INSULIN LISPRO (NovoLOG) PER UNIT SC SCH ×3 (05:54→18:13)
[2022-08-13] MEDS: KCL 20MEQ IN 100ML SWI (KRUN) 20 MEQ in IV 1 EA IV SCH ×4 (05:55→07:06)
[2022-08-13] MEDS ORDERED: POTASSIUM CHLORIDE 10% LIQ 20MEQ/15ML UDC PO ONE (06:00)
[2022-08-13] MEDS: IPRATROPIUM 0.5MG/ALBUTEROL 2.5MG INH SOL UD 3ML (DUONEB) NEB SCH ×4 (07:17→19:39)
[2022-08-13] MEDS ORDERED: KCL 20MEQ IN 100ML SWI (KRUN) 20 MEQ in IV 1 EA IV ONE ×4 (08:00→13:00)
[2022-08-13] MEDS: MULTIVITAMINS/MINERALS THERAP 1 TAB PO SCH (08:14)
[2022-08-13] MEDS: FOLIC ACID 1MG TAB PO SCH (08:14)
[2022-08-13] MEDS: PYRIDOXINE 50 MG TAB PO SCH (08:15)
[2022-08-13] MEDS: THIAMINE 200MG 2ML VIAL IV SCH (08:15)
[2022-08-13] MEDS: METOCLOPRAMIDE INJ 10MG/2ML VIAL IV SCH ×3 (08:15→21:15)
[2022-08-13] MEDS: cefTRIAXone SOD 2 GM in D5W MINI-BAG PLUS 50 ML IV SCH (08:15)
[2022-08-13] MEDS: HYDROCORTISONE 100MG/2ML VIAL IV SCH ×3 (09:26→21:15)
[2022-08-13 11:22] LABS: HEMATOCRIT 25.5 % (42.0-52.0); HEMOGLOBIN 8.9 g/dl (13.5-17.5); MEAN CORPUSCULAR HEMOGLOBIN 33.7 pg (27.0-33.0); MEAN CORPUSCULAR HGB CONC 34.9 g/dl (32.0-36.5); MEAN CORPUSCULAR VOLUME 96.6 fl (80.0-96.0); RED BLOOD COUNT 2.64 10^6/uL (4.30-6.10); WHITE BLOOD COUNT 4.5 10^3/uL (4.0-10.0)
[2022-08-13 11:44] LABS: PLATELET COUNT, AUTOMATED 11 10^3/uL (150-450)
[2022-08-13 11:45] LABS: INR 2.22
[2022-08-13 11:55] LABS: ALBUMIN 1.8 G/DL (3.2-5.2); ALKALINE PHOSPHATASE 304 U/L (46-116); ALT/SGPT 218 U/L (7.0-40); AST/SGOT 402 U/L (<34); BILIRUBIN,TOTAL 6.7 MG/DL (0.3-1.2); BLOOD UREA NITROGEN 29 MG/DL (9-23); CALCIUM LEVEL 7.4 MG/DL (8.3-10.6); CARBON DIOXIDE LEVEL 26 MMOL/L (20-31); CHLORIDE LEVEL 103 MMOL/L (98-107); CREATININE FOR GFR 1.02 MG/DL (0.70-1.30); GLOMERULAR FILTRATION RATE > 60.0 (>49); GLUCOSE, FASTING 234 MG/DL (74-106); PHOSPHORUS LEVEL 2.8 MG/DL (2.4-5.1); POTASSIUM SERUM 3.2 MMOL/L (3.5-5.1); SODIUM LEVEL 139 MMOL/L (136-145)
[2022-08-13] MEDS: ACETYLCYSTEINE IV SCH (12:09)
[2022-08-13] MEDS: D5W IV SCH (12:09)
[2022-08-13] MEDS: TAMSULOSIN 0.4 MG CAP PO SCH (16:31)
[2022-08-13] MEDS: PANTOPRAZOLE 40MG VIAL IV SCH (18:13)
[2022-08-13 18:33] LABS: TOTAL PROTEIN 4.1 G/DL (5.7-8.2)
[2022-08-13] MEDS: LEVEMIR (INSULIN DETEMIR) 1 UNITS/0.01ML SC SCH (21:14)
[2022-08-14] VITALS (13 sets, daily range): BP systolic 109–146; BP diastolic 62–78
[2022-08-14] MEDS: D5W IV SCH (02:21)
[2022-08-14] MEDS: ACETYLCYSTEINE IV SCH (02:21)
[2022-08-14] MEDS: HYDROCORTISONE 100MG/2ML VIAL IV SCH ×2 (02:23→08:45)
[2022-08-14 04:53] LABS: HEMATOCRIT 25.6 % (42.0-52.0); MEAN CORPUSCULAR HEMOGLOBIN 33.7 pg (27.0-33.0); MEAN CORPUSCULAR HGB CONC 35.2 g/dl (32.0-36.5); MEAN CORPUSCULAR VOLUME 95.9 fl (80.0-96.0); RED BLOOD COUNT 2.67 10^6/uL (4.30-6.10); WHITE BLOOD COUNT 5.1 10^3/uL (4.0-10.0)
[2022-08-14 04:59] LABS: PLATELET COUNT, AUTOMATED 17 10^3/uL (150-450)
[2022-08-14 05:10] LABS: INR 2.05; PROTHROMBIN TIME 23.5 SECONDS (12.5-14.5)
[2022-08-14 05:57] LABS: ALBUMIN 1.9 G/DL (3.2-5.2); ALKALINE PHOSPHATASE 265 U/L (46-116); ALT/SGPT 191 U/L (7.0-40); AST/SGOT 183 U/L (<34); BILIRUBIN,DIRECT 3.1 MG/DL (<0.4); BILIRUBIN,TOTAL 3.9 MG/DL (0.3-1.2); BLOOD UREA NITROGEN 30 MG/DL (9-23); CARBON DIOXIDE LEVEL 28 MMOL/L (20-31); CHLORIDE LEVEL 103 MMOL/L (98-107); CREATININE FOR GFR 0.94 MG/DL (0.70-1.30); GLOMERULAR FILTRATION RATE > 60.0 (>49); GLUCOSE, FASTING 280 MG/DL (74-106); PHOSPHORUS LEVEL 3.6 MG/DL (2.4-5.1); POTASSIUM SERUM 2.8 MMOL/L (3.5-5.1); SODIUM LEVEL 139 MMOL/L (136-145); TOTAL PROTEIN 4.4 G/DL (5.7-8.2)
[2022-08-14] MEDS: INSULIN LISPRO (NovoLOG) PER UNIT SC SCH ×6 (06:00→20:27)
[2022-08-14] MEDS ORDERED: POTASSIUM CHLORIDE 10MEQ SR TABLET PO ONE (07:00)
[2022-08-14] MEDS ORDERED: KCL 20MEQ IN 100ML SWI (KRUN) 20 MEQ in IV 1 EA IV ONE ×4 (07:00→08:00)
[2022-08-14] MEDS: IPRATROPIUM 0.5MG/ALBUTEROL 2.5MG INH SOL UD 3ML (DUONEB) NEB SCH ×4 (07:36→20:06)
[2022-08-14 08:09] LABS: MAGNESIUM LEVEL 1.3 MG/DL (1.8-2.4)
[2022-08-14] MEDS: MULTIVITAMINS/MINERALS THERAP 1 TAB PO SCH (08:44)
[2022-08-14] MEDS: FOLIC ACID 1MG TAB PO SCH (08:45)
[2022-08-14] MEDS: THIAMINE 200MG 2ML VIAL IV SCH (08:45)
[2022-08-14] MEDS: PYRIDOXINE 50 MG TAB PO SCH (08:45)
[2022-08-14] MEDS: TAMSULOSIN 0.4 MG CAP PO SCH (08:45)
[2022-08-14] MEDS: METOCLOPRAMIDE INJ 10MG/2ML VIAL IV SCH ×3 (08:45→20:27)
[2022-08-14] MEDS: cefTRIAXone SOD 2 GM in D5W MINI-BAG PLUS 50 ML IV SCH (08:49)
[2022-08-14] MEDS: MAG SULF 1GM/100ML (MAG RUN) 1 GM in IV 1 EA IV SCH ×2 (08:54→10:28)
[2022-08-14] MEDS: POTASSIUM CHLORIDE 10MEQ SR TABLET PO SCH ×2 (12:29→14:39)
[2022-08-14] MEDS: PANTOPRAZOLE 40MG VIAL IV SCH (18:01)
[2022-08-14] MEDS: LEVEMIR (INSULIN DETEMIR) 1 UNITS/0.01ML SC SCH (20:26)
[2022-08-14] MEDS ORDERED: HYDROCORTISONE 100MG/2ML VIAL IV SCH (21:00)
[2022-08-15] VITALS (8 sets, daily range): BP systolic 128–155; BP diastolic 67–81
[2022-08-15 04:44] LABS: HEMATOCRIT 24.1 % (42.0-52.0); HEMOGLOBIN 8.4 g/dl (13.5-17.5); MEAN CORPUSCULAR HEMOGLOBIN 34.1 pg (27.0-33.0); MEAN CORPUSCULAR HGB CONC 34.9 g/dl (32.0-36.5); RED BLOOD COUNT 2.46 10^6/uL (4.30-6.10); WHITE BLOOD COUNT 7.2 10^3/uL (4.0-10.0)
[2022-08-15 04:48] LABS: PLATELET COUNT, AUTOMATED 33 10^3/uL (150-450)
[2022-08-15 04:58] LABS: INR 1.72; PROTHROMBIN TIME 20.5 SECONDS (12.5-14.5)
[2022-08-15 05:19] LABS: ALBUMIN 2.1 G/DL (3.2-5.2); ALKALINE PHOSPHATASE 235 U/L (46-116); ALT/SGPT 154 U/L (7.0-40); AST/SGOT 98 U/L (<34); BILIRUBIN,DIRECT 2.2 MG/DL (<0.4); BILIRUBIN,TOTAL 2.9 MG/DL (0.3-1.2); BLOOD UREA NITROGEN 27 MG/DL (9-23); CALCIUM LEVEL 7.4 MG/DL (8.3-10.6); CARBON DIOXIDE LEVEL 28 MMOL/L (20-31); CHLORIDE LEVEL 107 MMOL/L (98-107); GLOMERULAR FILTRATION RATE > 60.0 (>49); GLUCOSE, FASTING 145 MG/DL (74-106); MAGNESIUM LEVEL 1.4 MG/DL (1.8-2.4); POTASSIUM SERUM 2.9 MMOL/L (3.5-5.1); SODIUM LEVEL 142 MMOL/L (136-145); TOTAL PROTEIN 4.6 G/DL (5.7-8.2)
[2022-08-15] MEDS ORDERED: POTASSIUM CHLORIDE 10MEQ SR TABLET PO ONE ×2 (06:00→08:00)
[2022-08-15] MEDS ORDERED: MAGNESIUM OXIDE 400MG TAB (MAG-OX) PO ONE (06:00)
[2022-08-15] MEDS: IPRATROPIUM 0.5MG/ALBUTEROL 2.5MG INH SOL UD 3ML (DUONEB) NEB SCH ×4 (07:26→19:44)
[2022-08-15] MEDS ORDERED: MAG SULF 1GM/100ML (MAG RUN) 1 GM in IV 1 EA IV ONE (08:00)
[2022-08-15] MEDS: INSULIN LISPRO (NovoLOG) PER UNIT SC SCH ×4 (08:15→20:42)
[2022-08-15] MEDS: THIAMINE 200MG 2ML VIAL IV SCH (08:31)
[2022-08-15] MEDS: HYDROCORTISONE 100MG/2ML VIAL IV SCH (08:32)
[2022-08-15] MEDS: MULTIVITAMINS/MINERALS THERAP 1 TAB PO SCH (08:33)
[2022-08-15] MEDS: METOCLOPRAMIDE INJ 10MG/2ML VIAL IV SCH ×3 (08:33→20:48)
[2022-08-15] MEDS: FOLIC ACID 1MG TAB PO SCH (08:34)
[2022-08-15] MEDS: TAMSULOSIN 0.4 MG CAP PO SCH (08:34)
[2022-08-15] MEDS: MAGNESIUM OXIDE 400MG TAB (MAG-OX) PO SCH ×2 (08:34→20:47)
[2022-08-15] MEDS: PYRIDOXINE 50 MG TAB PO SCH (08:35)
[2022-08-15] MEDS ORDERED: PANTOPRAZOLE 40MG VIAL IV SCH (09:00)
[2022-08-15] MEDS: LEVEMIR (INSULIN DETEMIR) 1 UNITS/0.01ML SC SCH (20:47)
[2022-08-16 04:25] VITALS: BP 138/75
[2022-08-16 06:17] LABS: HEMATOCRIT 27.6 % (42.0-52.0); HEMOGLOBIN 9.4 g/dl (13.5-17.5); MEAN CORPUSCULAR HEMOGLOBIN 33.9 pg (27.0-33.0); MEAN CORPUSCULAR HGB CONC 34.1 g/dl (32.0-36.5); MEAN CORPUSCULAR VOLUME 99.6 fl (80.0-96.0); RED BLOOD COUNT 2.77 10^6/uL (4.30-6.10); WHITE BLOOD COUNT 14.4 10^3/uL (4.0-10.0)
[2022-08-16 06:25] LABS: PLATELET COUNT, AUTOMATED 87 10^3/uL (150-450)
[2022-08-16 06:36] LABS: INR 1.56
[2022-08-16 06:53] LABS: ALBUMIN 2.3 G/DL (3.2-5.2); ALKALINE PHOSPHATASE 269 U/L (46-116); ALT/SGPT 142 U/L (7.0-40); AST/SGOT 89 U/L (<34); BILIRUBIN,DIRECT 2.5 MG/DL (<0.4); BILIRUBIN,TOTAL 4.4 MG/DL (0.3-1.2); BLOOD UREA NITROGEN 23 MG/DL (9-23); CALCIUM LEVEL 8.2 MG/DL (8.3-10.6); CARBON DIOXIDE LEVEL 26 MMOL/L (20-31); CHLORIDE LEVEL 108 MMOL/L (98-107); CREATININE FOR GFR 0.75 MG/DL (0.70-1.30); GLOMERULAR FILTRATION RATE > 60.0 (>49); GLUCOSE, FASTING 31 MG/DL (74-106); MAGNESIUM LEVEL 1.4 MG/DL (1.8-2.4); POTASSIUM SERUM 2.9 MMOL/L (3.5-5.1); SODIUM LEVEL 141 MMOL/L (136-145); TOTAL PROTEIN 4.8 G/DL (5.7-8.2)
[2022-08-16] MEDS: DEXTROSE 50% 50ML SYRINGE IV PRN (06:55)
[2022-08-16] MEDS ORDERED: POTASSIUM CHLORIDE 10MEQ SR TABLET PO ONE ×2 (07:00→08:00)
[2022-08-16] MEDS: INSULIN LISPRO (NovoLOG) PER UNIT SC SCH ×3 (07:30→18:09)
[2022-08-16 07:31] VITALS: BP 146/78
[2022-08-16] MEDS: IPRATROPIUM 0.5MG/ALBUTEROL 2.5MG INH SOL UD 3ML (DUONEB) NEB SCH ×4 (08:00→20:00)
[2022-08-16] MEDS ORDERED: MAG SULF 1GM/100ML (MAG RUN) 1 GM in IV 1 EA IV ONE (08:00)
[2022-08-16] MEDS: HYDROCORTISONE 100MG/2ML VIAL IV SCH (09:46)
[2022-08-16] MEDS: TAMSULOSIN 0.4 MG CAP PO SCH (09:47)
[2022-08-16] MEDS: MULTIVITAMINS/MINERALS THERAP 1 TAB PO SCH (09:47)
[2022-08-16] MEDS: PANTOPRAZOLE 40MG TAB (PROTONIX) PO SCH (09:47)
[2022-08-16] MEDS: THIAMINE 100 MG TAB PO SCH (09:47)
[2022-08-16] MEDS: PYRIDOXINE 50 MG TAB PO SCH (09:47)
[2022-08-16] MEDS: FOLIC ACID 1MG TAB PO SCH (09:47)
[2022-08-16] MEDS: MAGNESIUM OXIDE 400MG TAB (MAG-OX) PO SCH ×3 (09:48→20:03)
[2022-08-16 11:36] VITALS: BP 135/64
[2022-08-16] MEDS: POTASSIUM CHLORIDE 10MEQ SR TABLET PO SCH ×2 (12:18→20:04)
[2022-08-16 12:27] LABS: ALBUMIN 2.2 G/DL (3.2-5.2); ALKALINE PHOSPHATASE 259 U/L (46-116); ALT/SGPT 141 U/L (7.0-40); AST/SGOT 99 U/L (<34); BILIRUBIN,TOTAL 4.6 MG/DL (0.3-1.2); BLOOD UREA NITROGEN 21 MG/DL (9-23); CALCIUM LEVEL 7.8 MG/DL (8.3-10.6); CARBON DIOXIDE LEVEL 30 MMOL/L (20-31); CHLORIDE LEVEL 107 MMOL/L (98-107); CREATININE FOR GFR 0.74 MG/DL (0.70-1.30); GLOMERULAR FILTRATION RATE > 60.0 (>49); GLUCOSE, FASTING 168 MG/DL (74-106); POTASSIUM SERUM 3.6 MMOL/L (3.5-5.1); SODIUM LEVEL 140 MMOL/L (136-145); TOTAL PROTEIN 4.8 G/DL (5.7-8.2)
[2022-08-16] MEDS: LOPERAMIDE 2 MG CAPLET PO PRN (12:57)
[2022-08-16 16:13] VITALS: BP 131/72
[2022-08-16 20:00] VITALS: BP 135/64
[2022-08-17] VITALS: BP 120/59
[2022-08-17 04:00] VITALS: BP 114/67
[2022-08-17] MEDS: LOPERAMIDE 2 MG CAPLET PO PRN ×3 (04:36→20:25)
[2022-08-17] MEDS: INSULIN LISPRO (NovoLOG) PER UNIT SC SCH ×3 (07:43→18:10)
[2022-08-17] MEDS: IPRATROPIUM 0.5MG/ALBUTEROL 2.5MG INH SOL UD 3ML (DUONEB) NEB SCH ×4 (08:00→20:00)
[2022-08-17 08:15] VITALS: BP 121/64
[2022-08-17 08:17] LABS: HEMATOCRIT 29.8 % (42.0-52.0); HEMOGLOBIN 9.8 g/dl (13.5-17.5); MEAN CORPUSCULAR HEMOGLOBIN 34.4 pg (27.0-33.0); MEAN CORPUSCULAR HGB CONC 32.9 g/dl (32.0-36.5); MEAN CORPUSCULAR VOLUME 104.6 fl (80.0-96.0); RED BLOOD COUNT 2.85 10^6/uL (4.30-6.10)
[2022-08-17 08:19] LABS: PLATELET COUNT, AUTOMATED 94 10^3/uL (150-450)
[2022-08-17] MEDS: POTASSIUM CHLORIDE 10MEQ SR TABLET PO SCH ×2 (08:39→20:20)
[2022-08-17] MEDS: MAGNESIUM OXIDE 400MG TAB (MAG-OX) PO SCH ×3 (08:39→20:19)
[2022-08-17] MEDS: MULTIVITAMINS/MINERALS THERAP 1 TAB PO SCH (08:39)
[2022-08-17] MEDS: HYDROCORTISONE 100MG/2ML VIAL IV SCH (08:39)
[2022-08-17] MEDS: FOLIC ACID 1MG TAB PO SCH (08:39)
[2022-08-17] MEDS: TAMSULOSIN 0.4 MG CAP PO SCH (08:40)
[2022-08-17] MEDS: PANTOPRAZOLE 40MG TAB (PROTONIX) PO SCH (08:40)
[2022-08-17] MEDS: THIAMINE 100 MG TAB PO SCH (08:40)
[2022-08-17 08:45] LABS: ALBUMIN 2.3 G/DL (3.2-5.2); ALKALINE PHOSPHATASE 256 U/L (46-116); ALT/SGPT 124 U/L (7.0-40); AST/SGOT 70 U/L (<34); BILIRUBIN,TOTAL 5.1 MG/DL (0.3-1.2); BLOOD UREA NITROGEN 19 MG/DL (9-23); CALCIUM LEVEL 8.1 MG/DL (8.3-10.6); CARBON DIOXIDE LEVEL 26 MMOL/L (20-31); CHLORIDE LEVEL 107 MMOL/L (98-107); CREATININE FOR GFR 0.78 MG/DL (0.70-1.30); GLOMERULAR FILTRATION RATE > 60.0 (>49); GLUCOSE, FASTING 211 MG/DL (74-106); MAGNESIUM LEVEL 1.3 MG/DL (1.8-2.4); POTASSIUM SERUM 4.1 MMOL/L (3.5-5.1); SODIUM LEVEL 140 MMOL/L (136-145); TOTAL PROTEIN 5.2 G/DL (5.7-8.2)
[2022-08-17] MEDS: PYRIDOXINE 50 MG TAB PO SCH (09:00)
[2022-08-17] MEDS ORDERED: predniSONE 20 MG TAB PO SCH (09:30)
[2022-08-17 09:49] LABS: INR 1.5; PROTHROMBIN TIME 18.4 SECONDS (12.5-14.5)
[2022-08-17 09:50] LABS: PARTIAL THROMBOPLASTIN TIME 24.7 SECONDS (24.8-34.2)
[2022-08-17] MEDS ORDERED: MAG SULF 1GM/100ML (MAG RUN) 1 GM in IV 1 EA IV ONE (10:00)
[2022-08-17 11:30] VITALS: BP 126/71
[2022-08-17] MEDS: predniSONE 20 MG TAB PO SCH (11:55)
[2022-08-17] MEDS: FUROSEMIDE 40MG/4ML VIAL IV SCH (11:56)
[2022-08-17 16:19] VITALS: BP 137/65
[2022-08-17 20:00] VITALS: BP 129/71
[2022-08-18] VITALS: BP 137/70
[2022-08-18 04:17] VITALS: BP 146/66
[2022-08-18 06:29] LABS: HEMATOCRIT 25.2 % (42.0-52.0); HEMOGLOBIN 8.3 g/dl (13.5-17.5); MEAN CORPUSCULAR HEMOGLOBIN 34.4 pg (27.0-33.0); MEAN CORPUSCULAR HGB CONC 32.9 g/dl (32.0-36.5); MEAN CORPUSCULAR VOLUME 104.6 fl (80.0-96.0); RED BLOOD COUNT 2.41 10^6/uL (4.30-6.10); WHITE BLOOD COUNT 7.9 10^3/uL (4.0-10.0)
[2022-08-18 06:35] LABS: PLATELET COUNT, AUTOMATED 78 10^3/uL (150-450)
[2022-08-18 06:42] LABS: INR 1.46; PARTIAL THROMBOPLASTIN TIME 23.8 SECONDS (24.8-34.2)
[2022-08-18 06:51] LABS: ALKALINE PHOSPHATASE 205 U/L (46-116); ALT/SGPT 97 U/L (7.0-40); AST/SGOT 53 U/L (<34); BILIRUBIN,TOTAL 3.1 MG/DL (0.3-1.2); BLOOD UREA NITROGEN 19 MG/DL (9-23); CALCIUM LEVEL 7.4 MG/DL (8.3-10.6); CARBON DIOXIDE LEVEL 28 MMOL/L (20-31); CHLORIDE LEVEL 106 MMOL/L (98-107); CREATININE FOR GFR 0.77 MG/DL (0.70-1.30); GLOMERULAR FILTRATION RATE > 60.0 (>49); GLUCOSE, FASTING 267 MG/DL (74-106); POTASSIUM SERUM 3.9 MMOL/L (3.5-5.1); SODIUM LEVEL 140 MMOL/L (136-145); TOTAL PROTEIN 4.6 G/DL (5.7-8.2)
[2022-08-18] MEDS ORDERED: MAG SULF 1GM/100ML (MAG RUN) 1 GM in IV 1 EA IV ONE ×2 (07:20→20:35)
[2022-08-18 07:48] VITALS: BP 136/64
[2022-08-18] MEDS: IPRATROPIUM 0.5MG/ALBUTEROL 2.5MG INH SOL UD 3ML (DUONEB) NEB SCH ×4 (08:00→20:00)
[2022-08-18] MEDS: INSULIN LISPRO (NovoLOG) PER UNIT SC SCH ×3 (09:21→17:07)
[2022-08-18] MEDS: FUROSEMIDE 40MG/4ML VIAL IV SCH (09:21)
[2022-08-18] MEDS: MAGNESIUM OXIDE 400MG TAB (MAG-OX) PO SCH ×3 (09:22→20:29)
[2022-08-18] MEDS: TAMSULOSIN 0.4 MG CAP PO SCH (09:22)
[2022-08-18] MEDS: FOLIC ACID 1MG TAB PO SCH (09:22)
[2022-08-18] MEDS: PYRIDOXINE 50 MG TAB PO SCH (09:23)
[2022-08-18] MEDS: POTASSIUM CHLORIDE 10MEQ SR TABLET PO SCH ×2 (09:23→20:29)
[2022-08-18] MEDS: predniSONE 20 MG TAB PO SCH (09:23)
[2022-08-18] MEDS: MULTIVITAMINS/MINERALS THERAP 1 TAB PO SCH (09:23)
[2022-08-18] MEDS: PANTOPRAZOLE 40MG TAB (PROTONIX) PO SCH (09:23)
[2022-08-18] MEDS: THIAMINE 100 MG TAB PO SCH (09:23)
[2022-08-18 11:26] LABS: HEMOGLOBIN A1c 6.6 % (4.0-6.0)
[2022-08-18 12:00] VITALS: BP 116/52
[2022-08-18] MEDS: LEVEMIR (INSULIN DETEMIR) 1 UNITS/0.01ML SC SCH (13:14)
[2022-08-18 15:52] VITALS: BP 119/55
[2022-08-18 19:34] VITALS: BP 114/57
[2022-08-18 19:54] LABS: MAGNESIUM LEVEL 1.1 MG/DL (1.8-2.4); PHOSPHORUS LEVEL 2.4 MG/DL (2.4-5.1)
[2022-08-19] VITALS (7 sets, daily range): BP systolic 111–137; BP diastolic 60–90
[2022-08-19 07:09] LABS: HEMATOCRIT 25.3 % (42.0-52.0); HEMOGLOBIN 8.4 g/dl (13.5-17.5); MEAN CORPUSCULAR HEMOGLOBIN 34.9 pg (27.0-33.0); MEAN CORPUSCULAR HGB CONC 33.2 g/dl (32.0-36.5); RED BLOOD COUNT 2.41 10^6/uL (4.30-6.10); WHITE BLOOD COUNT 7.4 10^3/uL (4.0-10.0)
[2022-08-19 07:12] LABS: PLATELET COUNT, AUTOMATED 86 10^3/uL (150-450)
[2022-08-19 07:16] LABS: INR 1.27; PROTHROMBIN TIME 16.2 SECONDS (12.5-14.5)
[2022-08-19 07:17] LABS: PARTIAL THROMBOPLASTIN TIME 24.7 SECONDS (24.8-34.2)
[2022-08-19] MEDS: INSULIN LISPRO (NovoLOG) PER UNIT SC SCH ×3 (07:25→16:41)
[2022-08-19 07:27] LABS: ALBUMIN 2.2 G/DL (3.2-5.2); ALKALINE PHOSPHATASE 240 U/L (46-116); ALT/SGPT 100 U/L (7.0-40); AST/SGOT 69 U/L (<34); BLOOD UREA NITROGEN 16 MG/DL (9-23); CALCIUM LEVEL 7.6 MG/DL (8.3-10.6); CARBON DIOXIDE LEVEL 30 MMOL/L (20-31); CHLORIDE LEVEL 106 MMOL/L (98-107); CREATININE FOR GFR 0.76 MG/DL (0.70-1.30); GLOMERULAR FILTRATION RATE > 60.0 (>49); GLUCOSE, FASTING 86 MG/DL (74-106); MAGNESIUM LEVEL 1.3 MG/DL (1.8-2.4); POTASSIUM SERUM 3.5 MMOL/L (3.5-5.1); SODIUM LEVEL 141 MMOL/L (136-145); TOTAL PROTEIN 4.9 G/DL (5.7-8.2)
[2022-08-19] MEDS: IPRATROPIUM 0.5MG/ALBUTEROL 2.5MG INH SOL UD 3ML (DUONEB) NEB SCH ×4 (08:00→19:14)
[2022-08-19] MEDS: MAGNESIUM OXIDE 400MG TAB (MAG-OX) PO SCH ×3 (09:05→20:24)
[2022-08-19] MEDS: LEVEMIR (INSULIN DETEMIR) 1 UNITS/0.01ML SC SCH (09:05)
[2022-08-19] MEDS: FUROSEMIDE 40MG/4ML VIAL IV SCH (09:05)
[2022-08-19] MEDS: FOLIC ACID 1MG TAB PO SCH (09:06)
[2022-08-19] MEDS: predniSONE 20 MG TAB PO SCH (09:06)
[2022-08-19] MEDS: POTASSIUM CHLORIDE 10MEQ SR TABLET PO SCH ×2 (09:06→20:24)
[2022-08-19] MEDS: TAMSULOSIN 0.4 MG CAP PO SCH (09:06)
[2022-08-19] MEDS: THIAMINE 100 MG TAB PO SCH (09:06)
[2022-08-19] MEDS: MULTIVITAMINS/MINERALS THERAP 1 TAB PO SCH (09:06)
[2022-08-19] MEDS: PANTOPRAZOLE 40MG TAB (PROTONIX) PO SCH (09:06)
[2022-08-19] MEDS: PYRIDOXINE 50 MG TAB PO SCH (09:06)
[2022-08-20 06:00] VITALS: BP 125/66
[2022-08-20 06:02] LABS: BASO % 0.2 % (0.0-1.0); EOS # 0.1 10^3/uL (0.0-0.5); EOS % 2.3 % (0.0-3.0); HEMATOCRIT 21.8 % (42.0-52.0); HEMOGLOBIN 7.2 g/dl (13.5-17.5); LYMPH # 1.5 10^3/uL (1.5-5.0); LYMPH % 28.4 % (24.0-44.0); MEAN CORPUSCULAR HEMOGLOBIN 34.8 pg (27.0-33.0); MEAN CORPUSCULAR VOLUME 105.3 fl (80.0-96.0); MONO # 0.5 10^3/uL (0.0-0.8); MONO % 8.6 % (2.0-8.0); NEUTROPHILS # 3.1 10^3/uL (1.5-8.5); NEUTROPHILS % 59.9 % (36.0-66.0); PLATELET COUNT, AUTOMATED 77 10^3/uL (150-450); RED BLOOD COUNT 2.07 10^6/uL (4.30-6.10); WHITE BLOOD COUNT 5.2 10^3/uL (4.0-10.0)
[2022-08-20 06:25] LABS: ALKALINE PHOSPHATASE 212 U/L (46-116); ALT/SGPT 82 U/L (7.0-40); AST/SGOT 55 U/L (<34); BILIRUBIN,TOTAL 2.6 MG/DL (0.3-1.2); BLOOD UREA NITROGEN 15 MG/DL (9-23); CALCIUM LEVEL 7.2 MG/DL (8.3-10.6); CARBON DIOXIDE LEVEL 31 MMOL/L (20-31); CHLORIDE LEVEL 105 MMOL/L (98-107); CREATININE FOR GFR 0.75 MG/DL (0.70-1.30); GLOMERULAR FILTRATION RATE > 60.0 (>49); GLUCOSE, FASTING 149 MG/DL (74-106); MAGNESIUM LEVEL 1.1 MG/DL (1.8-2.4); POTASSIUM SERUM 3.5 MMOL/L (3.5-5.1); SODIUM LEVEL 143 MMOL/L (136-145); TOTAL PROTEIN 4.4 G/DL (5.7-8.2)
[2022-08-20] MEDS: IPRATROPIUM 0.5MG/ALBUTEROL 2.5MG INH SOL UD 3ML (DUONEB) NEB SCH (08:00)
[2022-08-20] MEDS: MAGNESIUM OXIDE 400MG TAB (MAG-OX) PO SCH ×3 (08:06→20:15)
[2022-08-20] MEDS: predniSONE 20 MG TAB PO SCH (08:06)
[2022-08-20] MEDS: MULTIVITAMINS/MINERALS THERAP 1 TAB PO SCH (08:06)
[2022-08-20] MEDS: THIAMINE 100 MG TAB PO SCH (08:06)
[2022-08-20] MEDS: TAMSULOSIN 0.4 MG CAP PO SCH (08:06)
[2022-08-20] MEDS: PYRIDOXINE 50 MG TAB PO SCH (08:06)
[2022-08-20] MEDS: FOLIC ACID 1MG TAB PO SCH (08:06)
[2022-08-20] MEDS: FAMOTIDINE 20 MG TAB PO SCH (08:07)
[2022-08-20] MEDS: LEVEMIR (INSULIN DETEMIR) 1 UNITS/0.01ML SC SCH (08:07)
[2022-08-20] MEDS: POTASSIUM CHLORIDE 10MEQ SR TABLET PO SCH ×2 (08:07→20:16)
[2022-08-20] MEDS: INSULIN LISPRO (NovoLOG) PER UNIT SC SCH ×3 (08:07→17:36)
[2022-08-20] MEDS: FUROSEMIDE 40MG/4ML VIAL IV SCH ×2 (08:08→16:38)
[2022-08-20] MEDS ORDERED: IPRATROPIUM 0.5MG/ALBUTEROL 2.5MG INH SOL UD 3ML (DUONEB) NEB PRN (11:45)
[2022-08-20 12:26] LABS: HEMATOCRIT 24.7 % (42.0-52.0); HEMOGLOBIN 8.1 g/dl (13.5-17.5)
[2022-08-20 14:00] VITALS: BP 120/64
[2022-08-20] MEDS: LOPERAMIDE 2 MG CAPLET PO PRN (20:19)
[2022-08-20 20:26] VITALS: BP 135/67
[2022-08-21 06:05] LABS: BASO % 0.2 % (0.0-1.0); EOS # 0.1 10^3/uL (0.0-0.5); EOS % 2.1 % (0.0-3.0); HEMOGLOBIN 7.3 g/dl (13.5-17.5); LYMPH # 1.6 10^3/uL (1.5-5.0); LYMPH % 29.8 % (24.0-44.0); MEAN CORPUSCULAR HEMOGLOBIN 34.4 pg (27.0-33.0); MEAN CORPUSCULAR HGB CONC 33.2 g/dl (32.0-36.5); MEAN CORPUSCULAR VOLUME 103.8 fl (80.0-96.0); MONO # 0.5 10^3/uL (0.0-0.8); MONO % 8.4 % (2.0-8.0); NEUTROPHILS # 3.2 10^3/uL (1.5-8.5); NEUTROPHILS % 59.3 % (36.0-66.0); RED BLOOD COUNT 2.12 10^6/uL (4.30-6.10); WHITE BLOOD COUNT 5.3 10^3/uL (4.0-10.0)
[2022-08-21 06:12] LABS: PLATELET COUNT, AUTOMATED 88 10^3/uL (150-450)
[2022-08-21 06:14] VITALS: BP 132/67
[2022-08-21 06:53] LABS: ALKALINE PHOSPHATASE 212 U/L (46-116); ALT/SGPT 80 U/L (7.0-40); AST/SGOT 43 U/L (<34); BILIRUBIN,TOTAL 2.1 MG/DL (0.3-1.2); BLOOD UREA NITROGEN 13 MG/DL (9-23); CALCIUM LEVEL 6.9 MG/DL (8.3-10.6); CARBON DIOXIDE LEVEL 35 MMOL/L (20-31); CHLORIDE LEVEL 100 MMOL/L (98-107); CREATININE FOR GFR 0.78 MG/DL (0.70-1.30); GLOMERULAR FILTRATION RATE > 60.0 (>49); GLUCOSE, FASTING 206 MG/DL (74-106); MAGNESIUM LEVEL 0.9 MG/DL (1.8-2.4); POTASSIUM SERUM 3.2 MMOL/L (3.5-5.1); SODIUM LEVEL 139 MMOL/L (136-145); TOTAL PROTEIN 4.5 G/DL (5.7-8.2)
[2022-08-21] MEDS ORDERED: POTASSIUM CHLORIDE 10MEQ SR TABLET PO ONE ×2 (08:00→13:10)
[2022-08-21] MEDS ORDERED: MAG SULF 1GM/100ML (MAG RUN) 1 GM in IV 1 EA IV ONE ×2 (08:00→14:00)
[2022-08-21] MEDS: THIAMINE 100 MG TAB PO SCH (08:27)
[2022-08-21] MEDS: FUROSEMIDE 40MG/4ML VIAL IV SCH (08:27)
[2022-08-21] MEDS: INSULIN LISPRO (NovoLOG) PER UNIT SC SCH ×3 (08:27→17:30)
[2022-08-21] MEDS: predniSONE 20 MG TAB PO SCH (08:28)
[2022-08-21] MEDS: LOPERAMIDE 2 MG CAPLET PO PRN ×2 (08:28→16:35)
[2022-08-21] MEDS: MULTIVITAMINS/MINERALS THERAP 1 TAB PO SCH (08:28)
[2022-08-21] MEDS: TAMSULOSIN 0.4 MG CAP PO SCH (08:28)
[2022-08-21] MEDS: POTASSIUM CHLORIDE 10MEQ SR TABLET PO SCH ×2 (08:29→20:05)
[2022-08-21] MEDS: FAMOTIDINE 20 MG TAB PO SCH (08:29)
[2022-08-21] MEDS: FOLIC ACID 1MG TAB PO SCH (08:29)
[2022-08-21] MEDS: MAGNESIUM OXIDE 400MG TAB (MAG-OX) PO SCH ×3 (08:29→20:05)
[2022-08-21] MEDS: LEVEMIR (INSULIN DETEMIR) 1 UNITS/0.01ML SC SCH (08:30)
[2022-08-21] MEDS: PYRIDOXINE 50 MG TAB PO SCH (08:30)
[2022-08-21 12:23] LABS: HEMATOCRIT 24.9 % (42.0-52.0); HEMOGLOBIN 8.3 g/dl (13.5-17.5)
[2022-08-21 12:57] LABS: BLOOD UREA NITROGEN 12 MG/DL (9-23); CALCIUM LEVEL 7.1 MG/DL (8.3-10.6); CARBON DIOXIDE LEVEL 34 MMOL/L (20-31); CHLORIDE LEVEL 98 MMOL/L (98-107); CREATININE FOR GFR 0.75 MG/DL (0.70-1.30); GLOMERULAR FILTRATION RATE > 60.0 (>49); GLUCOSE, FASTING 132 MG/DL (74-106); POTASSIUM SERUM 3.1 MMOL/L (3.5-5.1); SODIUM LEVEL 138 MMOL/L (136-145)
[2022-08-21] MEDS ORDERED: FLOM0.4C39 PO (13:42)
[2022-08-21] MEDS ORDERED: POTA-136 PO (13:42)
[2022-08-21] MEDS ORDERED: FOLI1TAB11 PO (13:42)
[2022-08-21] MEDS ORDERED: FURO40TA2 PO (13:42)
[2022-08-21] MEDS ORDERED: THIA100TA PO (13:42)
[2022-08-21] MEDS ORDERED: LOPE2CA PO (13:42)
[2022-08-21] MEDS ORDERED: MAGN400T2 PO (13:42)
[2022-08-21] MEDS ORDERED: VITMTA PO (13:42)
[2022-08-21 14:00] VITALS: BP 125/64
[2022-08-21 16:31] LABS: BLOOD UREA NITROGEN 12 MG/DL (9-23); CALCIUM LEVEL 6.8 MG/DL (8.3-10.6); CARBON DIOXIDE LEVEL 34 MMOL/L (20-31); CHLORIDE LEVEL 97 MMOL/L (98-107); CREATININE FOR GFR 0.72 MG/DL (0.70-1.30); GLOMERULAR FILTRATION RATE > 60.0 (>49); GLUCOSE, FASTING 192 MG/DL (74-106); MAGNESIUM LEVEL 1.2 MG/DL (1.8-2.4); POTASSIUM SERUM 3.5 MMOL/L (3.5-5.1); SODIUM LEVEL 136 MMOL/L (136-145)
[2022-08-21] MEDS ORDERED: PRED20TA PO (16:56)
[2022-08-21 20:10] VITALS: BP 119/66
[2022-08-22 06:01] VITALS: BP 113/68
[2022-08-22 06:11] LABS: EOS # 0.1 10^3/uL (0.0-0.5); EOS % 2.6 % (0.0-3.0); HEMATOCRIT 22.3 % (42.0-52.0); HEMOGLOBIN 7.3 g/dl (13.5-17.5); LYMPH # 1.5 10^3/uL (1.5-5.0); LYMPH % 30.3 % (24.0-44.0); MEAN CORPUSCULAR HEMOGLOBIN 34.3 pg (27.0-33.0); MEAN CORPUSCULAR HGB CONC 32.7 g/dl (32.0-36.5); MEAN CORPUSCULAR VOLUME 104.7 fl (80.0-96.0); MONO # 0.5 10^3/uL (0.0-0.8); MONO % 9.6 % (2.0-8.0); NEUTROPHILS # 2.9 10^3/uL (1.5-8.5); NEUTROPHILS % 57.1 % (36.0-66.0); PLATELET COUNT, AUTOMATED 101 10^3/uL (150-450); RED BLOOD COUNT 2.13 10^6/uL (4.30-6.10); WHITE BLOOD COUNT 5.1 10^3/uL (4.0-10.0)
[2022-08-22 06:28] LABS: ALBUMIN 2.1 G/DL (3.2-5.2); ALKALINE PHOSPHATASE 220 U/L (46-116); ALT/SGPT 80 U/L (7.0-40); AST/SGOT 50 U/L (<34); BLOOD UREA NITROGEN 13 MG/DL (9-23); CALCIUM LEVEL 6.9 MG/DL (8.3-10.6); CARBON DIOXIDE LEVEL 36 MMOL/L (20-31); CHLORIDE LEVEL 103 MMOL/L (98-107); CREATININE FOR GFR 0.76 MG/DL (0.70-1.30); GLOMERULAR FILTRATION RATE > 60.0 (>49); GLUCOSE, FASTING 162 MG/DL (74-106); MAGNESIUM LEVEL 1.2 MG/DL (1.8-2.4); POTASSIUM SERUM 4.2 MMOL/L (3.5-5.1); SODIUM LEVEL 139 MMOL/L (136-145); TOTAL PROTEIN 4.7 G/DL (5.7-8.2)
[2022-08-22] MEDS: MAG SULF 1GM/100ML (MAG RUN) 1 GM in IV 1 EA IV SCH ×2 (08:30→09:18)
[2022-08-22] MEDS: LOPERAMIDE 2 MG CAPLET PO PRN (08:31)
[2022-08-22] MEDS: INSULIN LISPRO (NovoLOG) PER UNIT SC SCH ×2 (08:31→12:00)
[2022-08-22] MEDS: PYRIDOXINE 50 MG TAB PO SCH (08:31)
[2022-08-22] MEDS: FAMOTIDINE 20 MG TAB PO SCH (08:31)
[2022-08-22] MEDS: MULTIVITAMINS/MINERALS THERAP 1 TAB PO SCH (08:31)
[2022-08-22] MEDS: FOLIC ACID 1MG TAB PO SCH (08:32)
[2022-08-22] MEDS: MAGNESIUM OXIDE 400MG TAB (MAG-OX) PO SCH (08:32)
[2022-08-22] MEDS: THIAMINE 100 MG TAB PO SCH (08:32)
[2022-08-22] MEDS: predniSONE 20 MG TAB PO SCH (08:32)
[2022-08-22] MEDS: TAMSULOSIN 0.4 MG CAP PO SCH (08:32)
[2022-08-22] MEDS: LEVEMIR (INSULIN DETEMIR) 1 UNITS/0.01ML SC SCH (08:32)
[2022-08-22] MEDS: POTASSIUM CHLORIDE 10MEQ SR TABLET PO SCH (08:33)
[2022-08-22] MEDS ORDERED: FUROSEMIDE 40 MG TAB PO SCH (09:00)
[2022-08-22 10:48] LABS: HEMATOCRIT 23.3 % (42.0-52.0); HEMOGLOBIN 7.8 g/dl (13.5-17.5)
== END 2022-08-22 13:11 | disposition home or self-care (01) | DRG 917 ==
LOC: M ED 14:23 → M ED INP 17:52 → M ICU 20:05 → M PCU 08-15 18:01 → M MSPAV 08-19 21:45
PROVIDERS: ADMIT Internal Medicine Pulmonary Disease; ATTEND Family Medicine
PROC: 5A1945Z Respiratory Ventilation, 24-96 Consecutive Hours (ICD-10-PCS; principal; 2022-08-07)
PROC: 02HV33Z Insertion of Infusion Device into Superior Vena Cava, Percutaneous Approach (ICD-10-PCS; 2022-08-07)
PROC: 0JH63XZ Insertion of Tunneled Vascular Access Device into Chest Subcutaneous Tissue and Fascia, Percutaneous Approach (ICD-10-PCS; 2022-08-07)
PROC: 30233R1 Transfusion of Nonautologous Platelets into Peripheral Vein, Percutaneous Approach (ICD-10-PCS; 2022-08-10)
PROC: 30233K1 Transfusion of Nonautologous Frozen Plasma into Peripheral Vein, Percutaneous Approach (ICD-10-PCS; 2022-08-14)
DX: T52.8X4A Toxic effect of other organic solvents, undetermined, initial encounter (principal); J96.90 Respiratory failure, unspecified, unspecified whether with hypoxia or hypercapnia; A41.9 Sepsis, unspecified organism; K72.00 Acute and subacute hepatic failure without coma; E43 Unspecified severe protein-calorie malnutrition; R65.21 Severe sepsis with septic shock; N17.9 Acute kidney failure, unspecified; E87.1 Hypo-osmolality and hyponatremia; E87.20 Acidosis, unspecified; J90 Pleural effusion, not elsewhere classified; D68.9 Coagulation defect, unspecified; N39.0 Urinary tract infection, site not specified; J98.11 Atelectasis; K86.1 Other chronic pancreatitis; E11.649 Type 2 diabetes mellitus with hypoglycemia without coma; E11.65 Type 2 diabetes mellitus with hyperglycemia; F10.10 Alcohol abuse, uncomplicated; D64.9 Anemia, unspecified; E83.39 Other disorders of phosphorus metabolism; E88.09 Other disorders of plasma-protein metabolism, not elsewhere classified; R19.7 Diarrhea, unspecified; E87.6 Hypokalemia; E83.51 Hypocalcemia; R74.01 Elevation of levels of liver transaminase levels; E86.0 Dehydration; E83.42 Hypomagnesemia; K74.60 Unspecified cirrhosis of liver; Z79.899 Other long term (current) drug therapy; R68.0 Hypothermia, not associated with low environmental temperature; D69.6 Thrombocytopenia, unspecified

== ENCOUNTER 2022-08-23 12:08 | Inpatient (IN) | payer MEDICARE ==
[2022-08-23] VITALS (12 sets, daily range): BP systolic 95–140; BP diastolic 43–67
[~2022-08-23 12:08] MED LIST: ALPR0.25 PO; FLOM0.4C39 PO; FOLI1TAB11 PO; FURO40TA2 PO; LOPE2CA PO; LOSA50TA28 PO; MAGN400T2 PO; POTA-136 PO; PRED20TA PO; THIA100TA PO; VENL37.598 PO; VITMTA PO
[2022-08-23] MEDS ORDERED: PANTOPRAZOLE 40MG VIAL IV ONE (12:25)
[2022-08-23] MEDS ORDERED: NS 500 ML IV ONE (12:25)
[2022-08-23 12:46] LABS: BASO % 0.1 % (0.0-1.0); EOS # 0.1 10^3/uL (0.0-0.5); EOS % 0.7 % (0.0-3.0); HEMATOCRIT 21.2 % (42.0-52.0); LYMPH # 1.1 10^3/uL (1.5-5.0); LYMPH % 13.2 % (24.0-44.0); MEAN CORPUSCULAR HEMOGLOBIN 34.2 pg (27.0-33.0); MEAN CORPUSCULAR HGB CONC 32.1 g/dl (32.0-36.5); MEAN CORPUSCULAR VOLUME 106.5 fl (80.0-96.0); MONO # 0.9 10^3/uL (0.0-0.8); MONO % 10.5 % (2.0-8.0); NEUTROPHILS # 6.3 10^3/uL (1.5-8.5); PLATELET COUNT, AUTOMATED 159 10^3/uL (150-450); RED BLOOD COUNT 1.99 10^6/uL (4.30-6.10); WHITE BLOOD COUNT 8.4 10^3/uL (4.0-10.0)
[2022-08-23 12:50] LABS: VENOUS BASE EXCESS -2.7 (-2.0-2.0); VENOUS HCO3 22.5 MEQ/L (23.0-27.0); VENOUS O2 SATURATION 86.2 % (60.0-80.0); VENOUS PARTIAL PRESSURE CO2 40.4 mmHg (38.0-50.0); VENOUS PARTIAL PRESSURE O2 58.4 mmHg (30.0-50.0); VENOUS PH 7.363 UNITS (7.330-7.430); VENOUS TOTAL CO2 23.7 MEQ/L (24.0-28.0)
[2022-08-23 12:53] LABS: HEMOGLOBIN 6.8 g/dl (13.5-17.5)
[2022-08-23 13:04] LABS: INR 1.18; PROTHROMBIN TIME 15.3 SECONDS (12.5-14.5)
[2022-08-23 13:05] LABS: LIPASE 10 U/L (12-53)
[2022-08-23 13:11] LABS: ALBUMIN 2.2 G/DL (3.2-5.2); ALKALINE PHOSPHATASE 209 U/L (46-116); ALT/SGPT 81 U/L (7.0-40); AST/SGOT 61 U/L (<34); BILIRUBIN,DIRECT 1.5 MG/DL (<0.4); BILIRUBIN,TOTAL 2.4 MG/DL (0.3-1.2); BLOOD UREA NITROGEN 11 MG/DL (9-23); CALCIUM LEVEL 6.9 MG/DL (8.3-10.6); CARBON DIOXIDE LEVEL 25 MMOL/L (20-31); CHLORIDE LEVEL 100 MMOL/L (98-107); CREATININE FOR GFR 0.77 MG/DL (0.70-1.30); GLOMERULAR FILTRATION RATE > 60.0 (>49); GLUCOSE, FASTING 215 MG/DL (74-106); POTASSIUM SERUM 3.7 MMOL/L (3.5-5.1); SODIUM LEVEL 137 MMOL/L (136-145); TOTAL PROTEIN 4.9 G/DL (5.7-8.2)
[2022-08-23 13:17] LABS: ETHYL ALCOHOL (ETHANOL) 0.021 % (0.000-0.010)
[2022-08-23 13:18] LABS: MAGNESIUM LEVEL 1.2 MG/DL (1.8-2.4)
[2022-08-23 13:19] LABS: SALICYLATE LEVEL < 3.0 MG/DL (<30)
[2022-08-23] MEDS ORDERED: cefTRIAXone SOD 2 GM in D5W MINI-BAG PLUS 50 ML IV ONE (13:20)
[2022-08-23 13:29] LABS: RSV AMPLIFICATION NEGATIVE (NEGATIVE)
[2022-08-23] MEDS ORDERED: HOME MED LIST COMPLETE! XX SCH (14:00)
[2022-08-23] MEDS ORDERED: DEXTROSE 50% 50ML SYRINGE IV PRN (14:45)
[2022-08-23] MEDS ORDERED: GLUCOSE 4GM CHEW TABLET PO PRN (14:45)
[2022-08-23] MEDS ORDERED: LORazepam 2 MG TAB PO PRN (14:45)
[2022-08-23] MEDS ORDERED: ALPRAZolam 0.25 MG TAB PO PRN (14:45)
[2022-08-23] MEDS ORDERED: GLUCAGON INJ 1MG VIAL SC PRN (14:45)
[2022-08-23] MEDS: MAG SULF 1GM/100ML (MAG RUN) 1 GM in IV 1 EA IV SCH ×2 (17:02→18:32)
[2022-08-23] MEDS: INSULIN LISPRO (NovoLOG) PER UNIT SC SCH ×2 (18:37→21:00)
[2022-08-23 20:16] LABS: HEMATOCRIT 22.8 % (42.0-52.0); HEMOGLOBIN 7.5 g/dl (13.5-17.5)
[2022-08-23] MEDS: MAGNESIUM OXIDE 400MG TAB (MAG-OX) PO SCH (21:52)
[2022-08-23] MEDS: THIAMINE 100 MG TAB PO SCH (21:53)
[2022-08-24] VITALS (32 sets, daily range): BP systolic 80–124; BP diastolic 45–70
[2022-08-24 06:17] LABS: HEMATOCRIT 27.2 % (42.0-52.0); MEAN CORPUSCULAR HEMOGLOBIN 32.4 pg (27.0-33.0); MEAN CORPUSCULAR HGB CONC 33.1 g/dl (32.0-36.5); MEAN CORPUSCULAR VOLUME 97.8 fl (80.0-96.0); PLATELET COUNT, AUTOMATED 115 10^3/uL (150-450); RED BLOOD COUNT 2.78 10^6/uL (4.30-6.10); WHITE BLOOD COUNT 6.6 10^3/uL (4.0-10.0)
[2022-08-24 06:47] LABS: ALKALINE PHOSPHATASE 190 U/L (46-116); ALT/SGPT 68 U/L (7.0-40); AST/SGOT 45 U/L (<34); BILIRUBIN,TOTAL 2.7 MG/DL (0.3-1.2); BLOOD UREA NITROGEN 10 MG/DL (9-23); CALCIUM LEVEL 6.9 MG/DL (8.3-10.6); CARBON DIOXIDE LEVEL 28 MMOL/L (20-31); CHLORIDE LEVEL 102 MMOL/L (98-107); GLOMERULAR FILTRATION RATE > 60.0 (>49); GLUCOSE, FASTING 120 MG/DL (74-106); MAGNESIUM LEVEL 1.4 MG/DL (1.8-2.4); POTASSIUM SERUM 3.6 MMOL/L (3.5-5.1); SODIUM LEVEL 138 MMOL/L (136-145); TOTAL PROTEIN 4.4 G/DL (5.7-8.2)
[2022-08-24] MEDS ORDERED: MAG SULF 1GM/100ML (MAG RUN) 1 GM in IV 1 EA IV ONE (08:00)
[2022-08-24] MEDS ORDERED: PANTOPRAZOLE 40MG VIAL IV SCH (09:00)
[2022-08-24] MEDS ORDERED: FLUBLOK(EGG FREE)(QUAD)INFLUENZA VACC 0.5ML SYRINGE 18YRS & OLDER IM.IMMUN ONE (09:00)
[2022-08-24] MEDS: INSULIN LISPRO (NovoLOG) PER UNIT SC SCH ×4 (09:05→21:09)
[2022-08-24] MEDS: PANTOPRAZOLE 40MG TAB (PROTONIX) PO SCH (09:12)
[2022-08-24] MEDS: MULTIVITAMINS/MINERALS THERAP 1 TAB PO SCH (09:12)
[2022-08-24] MEDS: THIAMINE 100 MG TAB PO SCH ×2 (09:12→21:06)
[2022-08-24] MEDS: MAGNESIUM OXIDE 400MG TAB (MAG-OX) PO SCH ×2 (09:12→21:06)
[2022-08-24] MEDS: FUROSEMIDE 40MG/4ML VIAL IV SCH (09:12)
[2022-08-24] MEDS: POTASSIUM CHLORIDE 10MEQ SR TABLET PO SCH (09:12)
[2022-08-24] MEDS: FOLIC ACID 1MG TAB PO SCH (09:12)
[2022-08-24] MEDS: TAMSULOSIN 0.4 MG CAP PO SCH (09:12)
[2022-08-24] MEDS: predniSONE 20 MG TAB PO SCH (09:13)
[2022-08-24] MEDS ORDERED: FLEET ENEMA PR ONE (10:00)
[2022-08-24 11:15] LABS: HEMOGLOBIN 7.7 g/dl (13.5-17.5)
[2022-08-24 15:13] LABS: HEMATOCRIT 26.3 % (42.0-52.0); HEMOGLOBIN 8.7 g/dl (13.5-17.5)
[2022-08-24] MEDS ORDERED: fentaNYL 100 MCG/2 ML INJECTION As Ordered ONE (15:59)
[2022-08-24] MEDS ORDERED: MIDAZOLAM INJ 2MG/2ML VIAL As Ordered ONE (16:00)
[2022-08-24] MEDS ORDERED: LIDOCAINE 2% 100MG/5ML SDV (FOR ANES.) As Ordered ONE (16:01)
[2022-08-24] MEDS ORDERED: propofoL 200 MG/20 ML VIAL As Ordered ONE ×2 (16:01→16:38)
[2022-08-24] MEDS ORDERED: SUCCINYLCHOLINE 100MG/5ML SYRINGE As Ordered ONE (16:02)
[2022-08-24] MEDS ORDERED: CALCIUM CHLORIDE 10% 1 GM/10 ML SYR As Ordered ONE (16:33)
[2022-08-24] MEDS ORDERED: PHENYLephrine 500MCG 5ML (100MCG/ML) SYRINGE As Ordered ONE ×2 (16:34→16:53)
[2022-08-24] MEDS ORDERED: ePHEDrine SULFATE 25 MG/5 ML(5MG/ML) SYRINGE As Ordered ONE (16:53)
[2022-08-24] MEDS ORDERED: propofoL 500 MG/50 ML VIAL As Ordered ONE (17:03)
[2022-08-24] MEDS ORDERED: ONDANSETRON 4MG 2ML VIAL IV PRN (17:30)
[2022-08-24] MEDS ORDERED: PHENYLEPHRINE HCL INJ 10 MG in D5W 99 ML IV SCH (17:35)
[2022-08-24 18:17] LABS: HEMATOCRIT 25.1 % (42.0-52.0); HEMOGLOBIN 8.4 g/dl (13.5-17.5); MEAN CORPUSCULAR HEMOGLOBIN 32.2 pg (27.0-33.0); MEAN CORPUSCULAR HGB CONC 33.5 g/dl (32.0-36.5); MEAN CORPUSCULAR VOLUME 96.2 fl (80.0-96.0); PLATELET COUNT, AUTOMATED 143 10^3/uL (150-450); RED BLOOD COUNT 2.61 10^6/uL (4.30-6.10); WHITE BLOOD COUNT 11.5 10^3/uL (4.0-10.0)
[2022-08-24] MEDS ORDERED: FUROSEMIDE 20MG/2ML VIAL IV ONE (19:35)
[2022-08-24] MEDS ORDERED: GOLYTELY SOLN 4000 ML BTL PO ONE (20:00)
[2022-08-24 21:12] LABS: HEMOGLOBIN 10.9 g/dl (13.5-17.5)
[2022-08-25 04:03] VITALS: BP 119/58
[2022-08-25 05:27] LABS: BASO % 0.5 % (0.0-1.0); EOS # 0.1 10^3/uL (0.0-0.5); EOS % 0.8 % (0.0-3.0); HEMATOCRIT 30.1 % (42.0-52.0); HEMOGLOBIN 10.2 g/dl (13.5-17.5); LYMPH # 1.4 10^3/uL (1.5-5.0); LYMPH % 22.8 % (24.0-44.0); MEAN CORPUSCULAR HEMOGLOBIN 30.9 pg (27.0-33.0); MEAN CORPUSCULAR HGB CONC 33.9 g/dl (32.0-36.5); MEAN CORPUSCULAR VOLUME 91.2 fl (80.0-96.0); MONO # 0.7 10^3/uL (0.0-0.8); MONO % 11.4 % (2.0-8.0); NEUTROPHILS # 3.9 10^3/uL (1.5-8.5); PLATELET COUNT, AUTOMATED 113 10^3/uL (150-450); WHITE BLOOD COUNT 6.1 10^3/uL (4.0-10.0)
[2022-08-25 05:59] LABS: ALBUMIN 1.9 G/DL (3.2-5.2); ALKALINE PHOSPHATASE 167 U/L (46-116); ALT/SGPT 54 U/L (7.0-40); AST/SGOT 27 U/L (<34); BILIRUBIN,TOTAL 2.9 MG/DL (0.3-1.2); BLOOD UREA NITROGEN 13 MG/DL (9-23); CALCIUM LEVEL 7.1 MG/DL (8.3-10.6); CARBON DIOXIDE LEVEL 26 MMOL/L (20-31); CHLORIDE LEVEL 104 MMOL/L (98-107); CREATININE FOR GFR 0.82 MG/DL (0.70-1.30); GLOMERULAR FILTRATION RATE > 60.0 (>49); GLUCOSE, FASTING 339 MG/DL (74-106); MAGNESIUM LEVEL 1.2 MG/DL (1.8-2.4); POTASSIUM SERUM 3.6 MMOL/L (3.5-5.1); SODIUM LEVEL 140 MMOL/L (136-145)
[2022-08-25 07:54] VITALS: BP 114/59
[2022-08-25 09:21] LABS: TOTAL PROTEIN 4.1 G/DL (5.7-8.2)
[2022-08-25] MEDS: FUROSEMIDE 40MG/4ML VIAL IV SCH (09:26)
[2022-08-25] MEDS: INSULIN LISPRO (NovoLOG) PER UNIT SC SCH ×4 (09:27→22:03)
[2022-08-25] MEDS: MAGNESIUM OXIDE 400MG TAB (MAG-OX) PO SCH ×2 (09:27→22:02)
[2022-08-25] MEDS: FOLIC ACID 1MG TAB PO SCH (09:27)
[2022-08-25] MEDS: POTASSIUM CHLORIDE 10MEQ SR TABLET PO SCH (09:27)
[2022-08-25] MEDS: MAG SULF 1GM/100ML (MAG RUN) 1 GM in IV 1 EA IV SCH ×2 (09:28→09:29)
[2022-08-25] MEDS: TAMSULOSIN 0.4 MG CAP PO SCH (09:28)
[2022-08-25] MEDS: THIAMINE 100 MG TAB PO SCH ×2 (09:28→22:02)
[2022-08-25] MEDS: predniSONE 20 MG TAB PO SCH (09:28)
[2022-08-25] MEDS: MULTIVITAMINS/MINERALS THERAP 1 TAB PO SCH (09:28)
[2022-08-25] MEDS: PANTOPRAZOLE 40MG TAB (PROTONIX) PO SCH (09:28)
[2022-08-25 10:14] VITALS: BP 106/56
[2022-08-25] MEDS ORDERED: fentaNYL 100 MCG/2 ML INJECTION As Ordered ONE (10:45)
[2022-08-25] MEDS ORDERED: LIDOCAINE 2% 100MG/5ML SDV (FOR ANES.) As Ordered ONE (10:46)
[2022-08-25] MEDS ORDERED: propofoL 200 MG/20 ML VIAL As Ordered ONE (10:46)
[2022-08-25] MEDS ORDERED: ePHEDrine SULFATE 25 MG/5 ML(5MG/ML) SYRINGE As Ordered ONE (11:44)
[2022-08-25] MEDS ORDERED: PHENYLephrine 500MCG 5ML (100MCG/ML) SYRINGE As Ordered ONE (11:44)
[2022-08-25 12:30] VITALS: BP 95/54
[2022-08-25 16:38] VITALS: BP 100/56
[2022-08-25 19:55] VITALS: BP 115/61
[2022-08-26 00:04] VITALS: BP 113/56
[2022-08-26 03:39] VITALS: BP 114/58
[2022-08-26 05:50] LABS: BASO % 0.1 % (0.0-1.0); EOS # 0.1 10^3/uL (0.0-0.5); EOS % 1.2 % (0.0-3.0); HEMATOCRIT 30.8 % (42.0-52.0); HEMOGLOBIN 10.3 g/dl (13.5-17.5); LYMPH # 1.7 10^3/uL (1.5-5.0); LYMPH % 22.9 % (24.0-44.0); MEAN CORPUSCULAR HEMOGLOBIN 31.2 pg (27.0-33.0); MEAN CORPUSCULAR HGB CONC 33.4 g/dl (32.0-36.5); MEAN CORPUSCULAR VOLUME 93.3 fl (80.0-96.0); MONO # 0.6 10^3/uL (0.0-0.8); MONO % 7.7 % (2.0-8.0); NEUTROPHILS % 67.7 % (36.0-66.0); PLATELET COUNT, AUTOMATED 121 10^3/uL (150-450); WHITE BLOOD COUNT 7.4 10^3/uL (4.0-10.0)
[2022-08-26 06:17] LABS: ALKALINE PHOSPHATASE 209 U/L (46-116); ALT/SGPT 59 U/L (7.0-40); AST/SGOT 31 U/L (<34); BILIRUBIN,TOTAL 1.7 MG/DL (0.3-1.2); BLOOD UREA NITROGEN 13 MG/DL (9-23); CALCIUM LEVEL 7.3 MG/DL (8.3-10.6); CARBON DIOXIDE LEVEL 29 MMOL/L (20-31); CHLORIDE LEVEL 102 MMOL/L (98-107); CREATININE FOR GFR 0.71 MG/DL (0.70-1.30); GLOMERULAR FILTRATION RATE > 60.0 (>49); GLUCOSE, FASTING 221 MG/DL (74-106); MAGNESIUM LEVEL 1.3 MG/DL (1.8-2.4); POTASSIUM SERUM 3.8 MMOL/L (3.5-5.1); SODIUM LEVEL 138 MMOL/L (136-145); TOTAL PROTEIN 4.3 G/DL (5.7-8.2)
[2022-08-26 08:00] VITALS: BP 113/58
[2022-08-26] MEDS: FUROSEMIDE 40MG/4ML VIAL IV SCH (09:56)
[2022-08-26] MEDS: MAG SULF 1GM/100ML (MAG RUN) 1 GM in IV 1 EA IV SCH ×2 (09:56→11:10)
[2022-08-26] MEDS: INSULIN LISPRO (NovoLOG) PER UNIT SC SCH ×3 (09:56→18:51)
[2022-08-26] MEDS: predniSONE 20 MG TAB PO SCH (09:57)
[2022-08-26] MEDS: POTASSIUM CHLORIDE 10MEQ SR TABLET PO SCH (09:57)
[2022-08-26] MEDS: TAMSULOSIN 0.4 MG CAP PO SCH (09:58)
[2022-08-26] MEDS: THIAMINE 100 MG TAB PO SCH (09:58)
[2022-08-26] MEDS: MAGNESIUM OXIDE 400MG TAB (MAG-OX) PO SCH ×2 (09:58→22:23)
[2022-08-26] MEDS: FOLIC ACID 1MG TAB PO SCH (09:58)
[2022-08-26] MEDS: MULTIVITAMINS/MINERALS THERAP 1 TAB PO SCH (09:58)
[2022-08-26] MEDS: PANTOPRAZOLE 40MG TAB (PROTONIX) PO SCH (09:58)
[2022-08-26 12:00] VITALS: BP 117/62
[2022-08-26] MEDS ORDERED: PANT40TA29 PO (12:02)
[2022-08-26] MEDS ORDERED: LASI40TA9 PO (12:02)
[2022-08-26] MEDS ORDERED: PRED10TA2 PO (12:02)
[2022-08-26] MEDS ORDERED: SPIR-10 PO (12:05)
[2022-08-26] MEDS ORDERED: FUROSEMIDE 40MG/4ML VIAL IV ONE (14:00)
[2022-08-26 16:00] VITALS: BP 115/62
[2022-08-26 19:20] LABS: HEMATOCRIT 26.8 % (42.0-52.0); HEMOGLOBIN 9.1 g/dl (13.5-17.5); MEAN CORPUSCULAR HEMOGLOBIN 31.4 pg (27.0-33.0); MEAN CORPUSCULAR VOLUME 92.4 fl (80.0-96.0); WHITE BLOOD COUNT 4.4 10^3/uL (4.0-10.0)
[2022-08-26 20:00] VITALS: BP 106/59
[2022-08-26 20:17] LABS: PLATELET COUNT, AUTOMATED 99 10^3/uL (150-450)
[2022-08-27] VITALS: BP 127/64
[2022-08-27 05:57] LABS: BASO % 0.1 % (0.0-1.0); EOS # 0.2 10^3/uL (0.0-0.5); EOS % 2.7 % (0.0-3.0); HEMATOCRIT 28.8 % (42.0-52.0); HEMOGLOBIN 9.3 g/dl (13.5-17.5); LYMPH % 27.3 % (24.0-44.0); MEAN CORPUSCULAR HEMOGLOBIN 30.7 pg (27.0-33.0); MEAN CORPUSCULAR HGB CONC 32.3 g/dl (32.0-36.5); MONO # 0.7 10^3/uL (0.0-0.8); MONO % 9.2 % (2.0-8.0); NEUTROPHILS # 4.5 10^3/uL (1.5-8.5); NEUTROPHILS % 60.4 % (36.0-66.0); PLATELET COUNT, AUTOMATED 123 10^3/uL (150-450); RED BLOOD COUNT 3.03 10^6/uL (4.30-6.10); WHITE BLOOD COUNT 7.5 10^3/uL (4.0-10.0)
[2022-08-27 06:44] LABS: ALBUMIN 1.9 G/DL (3.2-5.2); ALKALINE PHOSPHATASE 218 U/L (46-116); ALT/SGPT 59 U/L (7.0-40); AST/SGOT 43 U/L (<34); BILIRUBIN,TOTAL 1.4 MG/DL (0.3-1.2); BLOOD UREA NITROGEN 13 MG/DL (9-23); CALCIUM LEVEL 7.2 MG/DL (8.3-10.6); CARBON DIOXIDE LEVEL 27 MMOL/L (20-31); CHLORIDE LEVEL 99 MMOL/L (98-107); CREATININE FOR GFR 0.68 MG/DL (0.70-1.30); GLOMERULAR FILTRATION RATE > 60.0 (>49); GLUCOSE, FASTING 292 MG/DL (74-106); MAGNESIUM LEVEL 1.3 MG/DL (1.8-2.4); POTASSIUM SERUM 3.7 MMOL/L (3.5-5.1); SODIUM LEVEL 135 MMOL/L (136-145); TOTAL PROTEIN 4.4 G/DL (5.7-8.2)
[2022-08-27 07:21] VITALS: BP 130/65
[2022-08-27] MEDS: MAGNESIUM OXIDE 400MG TAB (MAG-OX) PO SCH (08:08)
[2022-08-27] MEDS: TAMSULOSIN 0.4 MG CAP PO SCH (08:09)
[2022-08-27] MEDS: POTASSIUM CHLORIDE 10MEQ SR TABLET PO SCH (08:09)
[2022-08-27] MEDS: FUROSEMIDE 40MG/4ML VIAL IV SCH (08:09)
[2022-08-27] MEDS: PANTOPRAZOLE 40MG TAB (PROTONIX) PO SCH (08:09)
[2022-08-27] MEDS: INSULIN LISPRO (NovoLOG) PER UNIT SC SCH ×2 (08:10→13:11)
[2022-08-27] MEDS: FOLIC ACID 1MG TAB PO SCH (08:10)
[2022-08-27] MEDS: MULTIVITAMINS/MINERALS THERAP 1 TAB PO SCH (08:10)
[2022-08-27] MEDS ORDERED: predniSONE 10MG TAB PO SCH (09:00)
[2022-08-27 11:27] LABS: IRON (FE) 50 UG/DL (65-175); PERCENT SATURATION 26.9 % (19.7-50.0); TOTAL IRON BINDING CAPACITY 186 UG/DL (250-425)
[2022-08-27 11:29] LABS: FERRITIN 517.1 NG/ML (10.5-307.3); FOLATE 17.1 NG/ML (>5.4)
[2022-08-27 11:30] LABS: VITAMIN B12 LEVEL 1095 PG/ML (211-911)
== END 2022-08-27 15:04 | disposition home or self-care (01) | DRG 393 ==
LOC: EDBD 12:08 → M ED 12:08 → M ED INP 14:42 → ENRESERV 16:26 → M MSPAV 17:55 → M PCU 08-24 12:24
PROVIDERS: ADMIT Family Medicine; ATTEND Internal Medicine Nephrology
PROC: 30233N1 Transfusion of Nonautologous Red Blood Cells into Peripheral Vein, Percutaneous Approach (ICD-10-PCS; 2022-08-23)
PROC: 0W3P8ZZ Control Bleeding in Gastrointestinal Tract, Via Natural or Artificial Opening Endoscopic (ICD-10-PCS; 2022-08-24)
PROC: 0DJ08ZZ Inspection of Upper Intestinal Tract, Via Natural or Artificial Opening Endoscopic (ICD-10-PCS; principal; 2022-08-24 09:37)
PROC: 0DBN8ZX Excision of Sigmoid Colon, Via Natural or Artificial Opening Endoscopic, Diagnostic (ICD-10-PCS; 2022-08-25)
DX: K55.9 Vascular disorder of intestine, unspecified (principal); I50.33 Acute on chronic diastolic (congestive) heart failure; K62.5 Hemorrhage of anus and rectum; E87.20 Acidosis, unspecified; K86.1 Other chronic pancreatitis; D62 Acute posthemorrhagic anemia; K70.31 Alcoholic cirrhosis of liver with ascites; E11.9 Type 2 diabetes mellitus without complications; F10.20 Alcohol dependence, uncomplicated; E83.42 Hypomagnesemia; I95.1 Orthostatic hypotension; K62.1 Rectal polyp; I27.20 Pulmonary hypertension, unspecified; K70.10 Alcoholic hepatitis without ascites; D12.5 Benign neoplasm of sigmoid colon; K52.9 Noninfective gastroenteritis and colitis, unspecified; K80.20 Calculus of gallbladder without cholecystitis without obstruction; R60.1 Generalized edema; Z79.899 Other long term (current) drug therapy

== ENCOUNTER 2022-10-31 22:35 | Emergency (ER) | payer MEDICARE, OTHER ==
[~2022-10-31] VITALS: Ht 172.7 cm; Wt 55.0 kg
[~2022-10-31 22:35] MED LIST changes: +LASI40TA9 PO; +PANT40TA29 PO; +PRED10TA2 PO; +SPIR-10 PO
[2022-11-01] MEDS ORDERED: NS 1,000 ML IV ONE (00:30)
[2022-11-01 01:14] LABS: BASO # 0.1 10^3/uL (0.0-0.2); EOS % 0.4 % (0.0-3.0); HEMATOCRIT 30.5 % (42.0-52.0); HEMOGLOBIN 10.5 g/dl (13.5-17.5); LYMPH # 1.4 10^3/uL (1.5-5.0); LYMPH % 29.4 % (24.0-44.0); MEAN CORPUSCULAR HEMOGLOBIN 31.2 pg (27.0-33.0); MEAN CORPUSCULAR HGB CONC 34.4 g/dl (32.0-36.5); MEAN CORPUSCULAR VOLUME 90.5 fl (80.0-96.0); MONO # 0.3 10^3/uL (0.0-0.8); MONO % 5.8 % (2.0-8.0); NEUTROPHILS % 62.6 % (36.0-66.0); PLATELET COUNT, AUTOMATED 141 10^3/uL (150-450); RED BLOOD COUNT 3.37 10^6/uL (4.30-6.10); WHITE BLOOD COUNT 4.8 10^3/uL (4.0-10.0)
[2022-11-01 01:55] LABS: BLOOD UREA NITROGEN 13 MG/DL (9-23); CALCIUM LEVEL 7.1 MG/DL (8.3-10.6); CARBON DIOXIDE LEVEL 31 MMOL/L (20-31); CHLORIDE LEVEL 102 MMOL/L (98-107); CREATININE FOR GFR 0.79 MG/DL (0.70-1.30); GLOMERULAR FILTRATION RATE > 60.0 (>49); GLUCOSE, FASTING 151 MG/DL (74-106); POTASSIUM SERUM 3.4 MMOL/L (3.5-5.1); SODIUM LEVEL 137 MMOL/L (136-145)
[2022-11-01] MEDS ORDERED: MAG SULF 1GM/100ML (MAG RUN) 1 GM in IV 1 EA IV ONE ×2 (02:00→03:00)
[2022-11-01] MEDS ORDERED: POTASSIUM CHLORIDE 10MEQ SR TABLET PO ONE (02:35)
[2022-11-01] MEDS ORDERED: FOLI1TAB11 PO (06:14)
[2022-11-01] MEDS ORDERED: VENL37.598 PO (06:14)
[2022-11-01] MEDS ORDERED: LOSA50TA28 PO (06:14)
[2022-11-01 06:15] VITALS: BP 117/73
[2022-11-01] MEDS ORDERED: HOME MED LIST COMPLETE! XX SCH (06:15)
[2022-11-01 06:23] LABS: THYROID STIMULATING HORMONE 3.796 uIU/ML (0.55-4.78)
[2022-11-01 06:30] LABS: RSV AMPLIFICATION NEGATIVE (NEGATIVE)
== END 2022-11-01 07:06 | disposition left against medical advice (07) ==
LOC: EDBD 22:35 → M ED 22:35
DX: I95.1 Orthostatic hypotension (principal); E87.6 Hypokalemia; K21.9 Gastro-esophageal reflux disease without esophagitis; N40.1 Benign prostatic hyperplasia with lower urinary tract symptoms; F10.10 Alcohol abuse, uncomplicated; F17.200 Nicotine dependence, unspecified, uncomplicated; Z86.79 Personal history of other diseases of the circulatory system; Z79.899 Other long term (current) drug therapy; Z79.811 Long term (current) use of aromatase inhibitors; Z53.9 Procedure and treatment not carried out, unspecified reason
CPT/HCPCS: 71045; 80048; 83735; 84443; 85025; 87631; 93005; 96365; 99285; J3475